=== PATIENT | male | born 1970 | race Caucasian/White ===

== ENCOUNTER → 2017-06-18 07:40 | Outpatient (CLI) | payer OTHER, SELFPAY ==
[2017-06-18 09:34] LABS: Anion Gap 8 (5-15); BUN 15 mg/dL (7-18); BUN/Creat Ratio 17.7 RATIO (10-20); Calcium,Total 8.5 mg/dL (8.5-10.1); Chloride 109 mmol/L (98-107); Cholesterol 199 mg/dL (200); Creatinine, Serum 0.85 mg/dL (0.70-1.30); EST Glomerular Filtration Rate 103 mL/min (>60); Est Glom Filt Rate - Afr Amer 124 mL/min (>60); Glucose 90 mg/dL (74-106); High Density Lipoprotein 35 mg/dL; Potassium 4.1 mmol/L (3.5-5.1); Sodium Level 141 mmol/L (136-145); Triglycerides 138 mg/dL; Very Low Density Lipoprotein 28 mg/dL (5-40)
== END ==
PROVIDERS: Family Provider Family Medicine; PCP Family Medicine; Visit Provider Family Medicine
DX: Z00.00 Encounter for general adult medical examination without abnormal findings (principal)
CPT/HCPCS: 36415; 80048; 80061

== ENCOUNTER 2018-01-02 07:40 | Day surgery (SDC) | payer OTHER, SELFPAY ==
[2018-01-02 07:55] VITALS: BP 123/71; PULSE 59; RESP 16; TEMP 36.6; O2SAT 97; BMI 32.8
--- NOTE | 2018-01-02 09:00 | COLBX_PTH ---
PATIENT: KEYLA ESTEVEZ LOC: EN U#:[id number] AGE/SX: 47/M ROOM: RE01/02/[address]: Dr. Duane Barnes MD : 1970 BED: DIS: 01/02/2018 SPEC #: [id number] RECD: 01/02/18 10:38 STATUS: KELSIE KAYLA #: [id number] MERLENE: 01/02/18 09:[address]: Duane Barnes DEPT: SURGICAL PATHOLOGY RECD BY: Feliciano Smith ENTERED: 01/02/18 11:11 SP TYPE: COLON BX OTHR DR: Dr. Dell Hawkins MD Tissues: A - Rectum, NOS B - Rectum, NOS Procedures: Surgery Specimen Level IV HEADER OPERATION: Colonoscopy (MAC) PRE-OP DIAGNOSIS: Screening TISSUE SUBMITTED: A. Polyp of rectum, B. Biopsy of polyp in rectum MICROSCOPIC DIAGNOSIS A. Polyp of rectum, biopsy: Fragments of hyperplastic polyp. B. Polyp in rectum, biopsy: Fragments of hyperplastic polyp. WILLI:chuy 01/03/18 MICROSCOPIC DESCRIPTION Slides are reviewed. GROSS DESCRIPTION A - Received in fixative is one container labeled with the patient's name and designated polyp rectum. The specimen consists of two pieces of cordero-pink polyp measuring 0.4 x 0.4 x 0.3 cm and 0.5 x 0.3 x 0.2 cm. The specimen is totally submitted in one cassette. B - Received in fixative is one container labeled with the patient's name and designated biopsy rectum. The specimen consists of two irregular fragments of cordero soft tissue that in aggregate measure 0.6 x 0.2 x 0.1 cm. The specimen is totally submitted in one cassette. / WILLI:chuy 01/02/18 TC:1 [facility]: [id number] x2
--- NOTE | 2018-01-02 09:31 | PCM.HP.STD ---
Problem List (1) Screen for colon cancer Status: Acute History of Present Illness Date of Admission: 01/02/18 The patient is a 47 year old M who presents for screening colonoscopy. Past Medical History Medical History: Medical History (Last Reviewed 01/02/18 @ 09:31 by Duane Barnes MD) Abdominal pain R10.9 Allergies No Known Allergies Allergy (Verified 12/30/17 08:27) Home Medications: Ambulatory Orders Medication Instructions Recorded Prednisone 10 mg PO UD 12/30/17 Surgical History: Surgical History (Last Reviewed 01/02/18 @ 09:31 by Duane Barnes MD) History of tonsillectomy Z98.890, Z90.89 History of umbilical hernia repair Z98.890, Z87.19 Smoking Status: Current every day smoker Tobacco Use: Cigarettes - *Family History Maternal Family History: Family History (Last Reviewed 11/14/17 @ 14:11 by Carole Montano) Mother Breast cancer History Items: No pertinent history Review of Systems Cardiovascular: Denies: Chest Pain, Chest Pressure, Chest Tightness, Palpitations Respiratory: Denies: Cough, Hemoptysis, Shortness of breath at rest, Shortness of breath upon exertion, Wheezing Gastrointestinal: Denies: Abdominal Pain, Constipation, Diarrhea, Hematemesis, Nausea, Melena, Vomiting VTE Information - Inpt Only VTE Present on Admission: No VTE Mechan Device Prophylaxis: None VTE Pharm Prophylaxis ordered?: No Reason prophylaxis not ordered:: Treatment Not Indicated Patient Problems: Active and Suspected Problems (Last Reviewed 11/14/17 @ 14:11 by Carole Montano) Screen for colon cancer (Acute) - Physical Exam Lungs: Clear to auscultation Cardiovascular: Regular rate, Regular Rhythm, No murmurs Abdomen: Bowel Sounds Present, Soft, Non Tender, Non-Distended Vital Signs Temp Pulse Resp BP Pulse Ox 97.8 F 59 L 16 123/71 H 97 01/02/18 07:55 01/02/18 07:55 01/02/18 07:55 01/02/18 07:55 01/02/18 07:55 Oxygen Delivery Method Room Air Weight: 241 lb 10.026 oz Body Mass Index (BMI) 32.8 Assessment/Plan All Active Problems (Last Reviewed 11/14/17 @ 14:11 by Carole Montano) Screen for colon cancer (Acute) Will be to perform a colonoscopy on him
[2018-01-02 09:32] VITALS: BP 100/62; BP 123/71; PULSE 68; RESP 16; TEMP 36.3; O2SAT 92
--- NOTE | 2018-01-02 09:32 | PCM.OPRPT ---
Problem List (1) Screen for colon cancer Status: Acute Report of Operation Date of Procedure: 01/02/18 Pre-Operative Diagnosis: z12.11 screening colonoscopy Post-Operative Diagnosis: Same Surgery/Procedure Performed:: [id number] colonoscopy with snare polypectomy Type of Anesthesia:: MAC Description of Procedure: Patient was brought into the endoscopy suite. Placed in the left lateral decubitus position. Patient was given graded anesthesia. Colonoscope was inserted into the rectum and directed through the sigmoid colon, descending colon, transverse colon, descending colon, to the cecum. Operative findings: 1. Cecum: Normal appearance no mass lesions normal ileocecal valve. 2. Ascending colon: Normal appearance no mass lesions. 3. Transverse colon: Normal appearance no mass lesions. 4. Descending colon: Normal appearance no mass lesions. 5. Sigmoid colon: Normal appearance few scattered diverticuli identified no mass lesions. 6. Rectum: Medium-sized polyp was identified just after the first fold it was removed with snare cautery technique and brought back to the channel the scope without difficulty. Patient had 2 other small sessile hyperplastic polyps which were biopsied with cold biopsy forceps.. Scope was withdrawn digital rectal exam was performed showing a smooth prostate with no nodules and no masses within the anus. Patient will need to have another colonoscopy in 3 years. - Admit VTE Documentation VTE Present on Admission: No VTE Mechan Device Prophylaxis: None VTE Pharm Prophylaxis ordered?: No Reason prophylaxis not ordered:: Treatment Not Indicated
[2018-01-02 09:35] VITALS: BP 123/71; BP 98/51; PULSE 62; RESP 16; O2SAT 94
[2018-01-02 09:40] VITALS: BP 101/81; BP 123/71; PULSE 62; RESP 16; O2SAT 94
[2018-01-02 09:46] VITALS: BP 101/52; BP 123/71; PULSE 54; RESP 16; TEMP 36; O2SAT 95
[2018-01-02 10:03] VITALS: BP 123/71
== END 2018-01-02 10:07 | disposition home or self-care (01) ==
LOC: EN 07:41 → AC 07:42
PROVIDERS: Family Provider Family Medicine; PCP Family Medicine; Visit Provider Surgery
PROC: 0DJD8ZZ Inspection of Lower Intestinal Tract, Via Natural or Artificial Opening Endoscopic (ICD-10-PCS; CPT 45378; principal; 2018-01-02 08:55)
DX: Z12.11 Encounter for screening for malignant neoplasm of colon (principal); K62.1 Rectal polyp; F17.210 Nicotine dependence, cigarettes, uncomplicated; Z79.52 Long term (current) use of systemic steroids
CPT/HCPCS: 45385; 88305; J7120

== ENCOUNTER → 2018-02-24 15:08 | Outpatient (CLI) | payer OTHER, SELFPAY ==
--- NOTE | 2018-02-24 15:16 | EKG12_ITS ---
Test Reason : PREOP Blood Pressure : / mmHG Vent. Rate : 053 BPM Atrial Rate : 053 BPM P-R Int : 142 ms QRS Dur : 102 ms QT Int : 418 ms P-R-T Axes : 050 030 -14 degrees QTc Int : 392 ms Sinus bradycardia T wave abnormality, consider inferior ischemia Abnormal ECG Confirmed by SADIQ STYLES, AIDA ([id number]), scientific publications editor AYALA BROWN ([id number]) on 02/27/2018 3:50:54 PM Referred By: Zuhair Goldberg Confirmed By:AIDA BABCOCK MD
[2018-02-24 16:14] LABS: Hematocrit 46.2 % (40-54); Hemoglobin 15.2 g/dl (13.0-16.5); Mean Corp Hgb Conc 32.9 g/gl (32-36); Mean Corpuscular Hgb 29.3 pg (27.0-32.0); Mean Platelet Vol. 9.3 fl (6.2-12.0); Platelet Count 303 K/mm3 (150-450); RBC Distribution Width CV 13.3 % (11.6-14.6); RBC Distribution Width SD 43.1 fl (35.1-43.9); Red Blood Count 5.19 M/mm3 (4.6-6.2); White Blood Count 9.9 K/mm3 (4.4-11.0)
[2018-02-24 16:16] LABS: Scan Indicated on CBC? Y/N NO
[2018-02-24 16:24] LABS: Anion Gap 9 (5-15); BUN 20 mg/dL (7-18); BUN/Creat Ratio 19.6 RATIO (10-20); Calcium,Total 8.9 mg/dL (8.5-10.1); Chloride 105 mmol/L (98-107); Creatinine, Serum 1.02 mg/dL (0.70-1.30); EST Glomerular Filtration Rate 83 mL/min (>60); Est Glom Filt Rate - Afr Amer 100 mL/min (>60); Glucose 99 mg/dL (74-106); Potassium 3.6 mmol/L (3.5-5.1); Sodium Level 140 mmol/L (136-145)
== END ==
PROVIDERS: Family Provider Family Medicine; PCP Family Medicine; Referring Provider Physician Assistant Surgical; Visit Provider Physician Assistant Surgical
DX: Z01.810 Encounter for preprocedural cardiovascular examination (principal); Z01.818 Encounter for other preprocedural examination
CPT/HCPCS: 36415; 80048; 85027; 93005

== ENCOUNTER → 2018-03-11 11:20 | Outpatient (CLI) | payer OTHER, SELFPAY ==
[2018-03-07 13:59] VITALS: BMI 35.4
[2018-03-11 12:21] LABS: AST(SGOT) 117 U/L (15-37); Alanine Aminotransfer ALT/SGPT 165 U/L (16-61); Albumin, Serum 3.6 g/dL (3.2-5.0); Alkaline Phosphatase 80 U/L (45-117); Bilirubin, Direct 0.18 mg/dL (0.00-0.30); Cholesterol 186 mg/dL (200); Globulin 3.5 g/dL (2.2-4.2); High Density Lipoprotein 42 mg/dL; Protein, Total 7.1 g/dL (6.4-8.2); Triglycerides 122 mg/dL; Very Low Density Lipoprotein 24 mg/dL (5-40)
== END ==
PROVIDERS: Family Provider Family Medicine; PCP Family Medicine; Referring Provider Internal Medicine Cardiovascular Disease; Visit Provider Internal Medicine Cardiovascular Disease
DX: E78.5 Hyperlipidemia, unspecified (principal)
CPT/HCPCS: 36415; 80061; 80076

== ENCOUNTER → 2018-03-17 09:44 | Outpatient (CLI) | payer OTHER, SELFPAY ==
[2018-03-07 13:59] VITALS: BMI 35.4
--- NOTE | 2018-03-17 09:48 | ECHOCS_ITS ---
Reason For Study: ABN EKG Procedure This was a 2D Doppler, Color Flow transthoracic echocardiogram. Contrast injection was performed. Exam performed in department. Left Ventricle Normal size and thickness. The estimated ejection fraction is 50-55 %. Mild global left ventricular systolic dysfunction. Stage 1 diastolic dysfunction. Right Ventricle Mildly dilated right ventricle. Normal systolic function. Atria Normal left atrium. Normal right atrium. Normal atrial septum. Mitral Valve The mitral valve is structurally normal. No prolapse or stenosis seen. Tricuspid Valve Normal tricuspid valve. Trivial tricuspid valve insufficiency. Right ventricular systolic pressure estimated to be 21 mmHg. Aortic Valve Trisinus/trileaflet aortic valve. Normal aortic valve. Pulmonic Valve Normal pulmonic valve. Great Vessels Normal aortic root. Normal arch. Normal inferior vena cava. Inferior vena cava collapse with sniff. Pericardium/Pleural No pericardial effusion. Medication 22 gauge I.V. with prn adaptor inserted into right arm. Diluted definity 7ml given slow IV push to enhance endocardial definition. MMode/2D Measurements & Calculations LVIDd: 5.6 cm IVSd: 0.87 cm Ao root diam: 3.2 cm LVIDs: 3.9 cm LVPWd: 0.85 cm RVDd: 3.9 cm FS: 30.7 % LAV(MOD-bp): 52.7 ml LVAd ap4: 38.5 cm2 EDV(MOD-sp2): 78.2 ml LAV(MOD-bp) Indexed: 23.1 ml/m2 EDV(MOD-sp4): 137.8 ml EF(MOD-sp2): 51.2 % LAV(MOD-sp2): 54.4 ml EDV(sp4-el): 152.1 ml LAV(MOD-sp4): 44.8 ml LVAs ap4: 23.5 cm2 ESV(MOD-sp4): 66.2 ml ESV(sp4-el): 69.8 ml EF(MOD-sp4): 52.0 % EF(sp4-el): 54.1 % SV(MOD-sp4): 71.6 ml SV(MOD-sp2): 40.0 ml SV(sp4-el): 82.3 ml LA A4 area: 17.7 cm2 LA dimension(2D): 4.5 cm RA A4 area: 12.2 cm2 Time Measurements MV dec time: 0.23 sec Doppler Measurements & Calculations MV E max el: 90.7 cm/sec Lat Peak E' El: 10.3 cm/sec Med Peak E' El: 9.4 cm/sec MV A max el: 51.8 cm/sec E/E' lat: 8.8 E/E' med: 9.7 MV E/A: 1.8 Ao V2 max: 108.9 cm/sec LV V1 max: 96.6 cm/sec TR max el: 201.4 cm/sec Ao max P.7 mmHg LV V1 max P.7 mmHg TR max P.2 mmHg Interpretation Summary The estimated ejection fraction is 50-55 %. Mild global left ventricular systolic dysfunction. Stage 1 diastolic dysfunction. Mildly dilated right ventricle. Trivial tricuspid valve insufficiency. Right ventricular systolic pressure estimated to be 21 mmHg. There is no comparison study available. Ordering Physician: Duane Nails Referring Physician: LADONNA CHIN Performed By: Elisabeth Leos RDCS, RVT
== END ==
PROVIDERS: Family Provider Family Medicine; PCP Family Medicine; Referring Provider Internal Medicine Cardiovascular Disease; Visit Provider Internal Medicine Cardiovascular Disease
DX: Z01.810 Encounter for preprocedural cardiovascular examination (principal); R94.31 Abnormal electrocardiogram [ECG] [EKG]
CPT/HCPCS: 93306; Q9957; A4216; C8929

== ENCOUNTER → 2018-03-23 09:20 | Outpatient (CLI) | payer OTHER, SELFPAY ==
--- NOTE | 2018-03-23 09:23 | STEWCON_ITS ---
Reason For Study: ABN EKG Stress Results Protocol: Stress Echocardiogram Maximum Predicted HR: 172 bpm Target HR: 146 bpm % Maximum Predicted HR: 88 % DurationHeart Rate Stage (mm:ss) (bpm) BP Comment BASELINE 50 120/77DILUTED DEFINITY 3ML USED BURCE PROTOCOL- STAGE 1 3:00 105 160/80 ABDIRAHMAN PROTOCOL- STAGE 2 3:00 134 174/74SL SOB ABDIRAHMAN PROTOCOL- STAGE 3 3:00 151 180/80SOB RECOVERY 88 120/82 Stress Duration: 9:00 mm:ss Maximum Stress HR: 151 bpm Baseline Echocardiogram Findings The estimated ejection fraction is 65 %. Stress Echo Wall motion Data Resting WM Intermediate WM Stress WM Resting Wall Motion Wall Motion Stress No regional wall motion No regional wall motion abnormalities noted. abnormalities noted. EKG Data Normal intervals are noted. The patient exercised according to the regular Abdirahman protocol for a total duration of 9:03. The maximum heart rate attained was 151 beats per minute. This was 87% of maximum predicted heart rate. The patient exercised into stage 4 of the Abdirahman protocol. During stress, there were no ST or T wave changes noted to suggest ischemia. No clinical angina was noted. No arrhythmias noted. Interpretation Summary The study was technically difficult. Contrast injection was performed. The estimated ejection fraction is 65 %. Normal, adequate, treadmill echocardiogram. Negative for ischemia by EKG and echocardiographic criteria. No anginal symptoms noted. No arrhythmias noted. Average exercise capacity for age. Final LVEF is 75%. Decreased sensitivity due to poor echo windows requiring Definity enhancing agent. Test terminated due to dyspnea. No complications. Ordering Physician: Duane Nails Referring Physician: Dell Hawkins MD Performed By: Elisabeth Leos, CBCS, RVT
--- OUTSIDE RECORDS SUMMARY | 2018-05-18 10:15 | XMS RPT_ITS ---
:1970 Author Organization OHIP Support Name Relationship Address Phone ESTEVEZSRI POLLACK Unavailable [address] + [place] [address] SJE RHOMBUS Unavailable [address] + [place] [address] SRI ESTEVEZ Unavailable [address] + [place] [address] SJE RHOMBUS Unavailable [address] + [place] [address] SRI ESTEVEZ Unavailable [address] + [place] [address] SJE RHOMBUS Unavailable [address] + [place] [address] SRI ESTEVEZ Unavailable [address] + [place] [address] SJE RHOMBUS Unavailable [address] + [place] [address] KE ESTEVEZECCA Unavailable [address] + [place] [address] SJE RHOMBUS Unavailable [address] + [place] [address] KE ESTEVEZECCA Unavailable [address] + [place] [address] SJE RHOMBUS Unavailable [address] + [place] [address] SRI ESTEVEZ Unavailable [address] + [place] [address] SJE RHOMBUS Unavailable [address] + [place] [address] SRI ESTEVEZ Unavailable [address] + [place] [address] SJE RHOMBUS Unavailable [address] + [place] [address] ESTEVEZ, SRI Unavailable [address] + [place] [address] SJE RHOMBUS Unavailable [address] + [place] [address] ESTEVEZ, SRI Unavailable [address] + [place] [address] SJE RHOMBUS Unavailable [address] + [place] [address] ESTEVEZ, SRI Unavailable [address] + [place] [address] SJE RHOMBUS Unavailable [address] + [place] [address] ESTEVEZ, SRI Unavailable [address] + [place] [address] SJE RHOMBUS Unavailable [address] + [place] [address] ESTEVEZ, SRI Unavailable [address] + [place] [address] SG ROBOSE Unavailable / +/ [place] [address] ZENAIDA, SRI Unavailable [address] [phone] [place] [address] SG ROBOSE Unavailable / +/ [place] [address] ESTEVEZ, SRI Unavailable [address] [phone] [place] [address] SG ROBOSE Unavailable / +/ [place] [address] Care Team Providers Name Role Phone Duane Nails Attending Unavailable Duane Nails Referring Unavailable Duane Barnes Attending Unavailable Ladonna Hawkins Referring Unavailable Ladonna Hawkins Attending Unavailable Ladonna Hawkins Primary Care Unavailable Meg Wilks PA-C Attending Unavailable Ladonna Hawkins Referring Unavailable Ladonna Hawkins Primary Care Unavailable Duane Barnes Attending Unavailable Ladonna Hawkins Primary Care Unavailable Duane Barnes Referring Unavailable Duane Barnes Attending Unavailable Duane Barnes Referring Unavailable Ranney, Christopher Primary Care Unavailable Duane Barnes Consulting Unavailable Duane Barnes Attending Unavailable Ranney, Christopher Referring Unavailable Ranney, Christopher Primary Care Unavailable EsZuhair huggins PA-C Attending Unavailable EshenZuhair bloom-C Referring Unavailable Ranney, Christopher Primary Care Unavailable Duane Nails Attending Unavailable Ranney, Christopher Referring Unavailable NailsDuane Attending Unavailable Nails, Duane Referring Unavailable Ranney, Christopher Primary Care Unavailable Duane Nails Attending Unavailable Ranney, Christopher Primary Care Unavailable Duane Nails Referring Unavailable Johnson Peña Attending Unavailable EshenauZuhair gao PA-C Referring Unavailable NailsDuane Attending Unavailable Nails, Duane Referring Unavailable Ranney, Christopher Primary Care Unavailable Duane Nails Attending Unavailable NailsDuane Referring Unavailable Ranney, Christopher Primary Care Unavailable Duane Nails Consulting Unavailable LeonidesneyLadonna Attending Unavailable Ranney, Christopher Primary Care Unavailable PROBLEMS PROBLEMS DATE TYPE CONDITION / CODE ATTENDING STATUS SOURCE 03/23/2018 Unknown Z01.810 - Encounter Duane Nails Active [place] for preprocedural [facility] examination / Repository Z01.810(ICD-10) 04/06/2018 Unknown R94.31 - Abnormal Duane Nails Active [place] electrocardiogram Community [ECG] [EKG] / Hospital R94.31(ICD-10) Repository 03/11/2018 Unknown E78.5 - Duane Nails Active [place] Hyperlipidemia, Community unspecified / Hospital E78.5(ICD-10) Repository 02/24/2018 Unknown Z01.818 - Encounter Xin Goldberg for other Zuhair ULLOA [facility] preprocedural Hospital examination / Repository Z01.818(ICD-10) PROCEDURES PROCEDURES No Procedure Records FoundRESULTS RESULTS PROTHROMBIN TIME W/INR Collected: 03/27/2018 Status: F Source: [place] 3:19 PM [facility] REPOSITORY TYPE CODE TESTS RESULT OUT OF RANGE REFERENCE UNITS LAB L300.4150 11.7-14.9 SECONDS Normal PROTIME 12.7 LAB L300.4200 Normal INR 1.0 Performed By: #### L300.3900, L300.4310, L500.4050, L501.5100, L503.6550 #### [facility] [address] [place], [place], [address] #### L3100.0390, L3100.0440, L3100.0528, L3100.0625 #### [facility] (refer to report for specific site) refer to report for address and phone number PARTIAL THROMBOPLAST Collected: 03/27/2018 Status: F Source: [place] TIME 3:19 PM [facility] REPOSITORY TYPE CODE TESTS RESULT OUT OF RANGE REFERENCE UNITS LAB L300.4310 24.1-36.2 Seconds Normal PTT 36.1 Performed By: #### L300.3900, L300.4310, L500.4050, L501.5100, L503.6550 #### [facility] [address] [facility]. [place], [place], [id number] #### L3100.0390, L3100.0440, L3100.0528, L3100.0625 #### [facility] (refer to report for specific site) refer to report for address and phone number COMPREHENSIVE METABOLIC Collected: 03/27/2018 Status: F Source: [place] PROFIL 3:19 PM [facility] REPOSITORY TYPE CODE TESTS RESULT OUT OF RANGE REFERENCE UNITS LAB L501.0100 74-106 mg/dL Normal GLU 80 Result Comment: Please note revised GLUCOSE reference range effective 2017. LAB L501.1000 7-18 mg/dL High BUN 19 LAB L501.1100 0.70-1.30 mg/dL Normal CREAT,SERUM 0.97 Result Comment: The validity of the calculated GFR AND GFRAA in patients over 70 years has not been determined. Clinical correlation is essential. LAB L501.1110 >60 mL/min Normal EST GFR 87 Result Comment: Non- GFR Calc LAB L501.1115 >60 mL/min Normal EST GFR - AA 106 Result Comment: GFR Calc LAB L501.1300 10-20 RATIO Normal BUN/CRE 19.5 LAB L501.1500 6.4-8.2 g/dL T Normal PROT 7.3 LAB L501.1800 3.2-5.0 g/dL Normal ALB 3.7 LAB L501.1950 2.2-4.2 g/dL Normal GLOB 3.6 LAB L501.2000 0.9-2.4 RATIO Normal A/G 1.0 LAB L501.2200 8.5-10.1 mg/dL CA Normal 8.7 LAB L501.4100 15-37 U/L Normal AST 29 LAB L501.4305 45-117 U/L Normal ALK P 71 LAB L501.4405 16-61 U/L Normal ALT 46 LAB L501.4600 0.20-1.00 mg/dL T Normal BILI 0.40 LAB L501.5300 136-145 mmol/L NA Normal 141 LAB L501.5600 3.5-5.1 mmol/L K Normal 3.7 LAB L501.5900 98-107 mmol/L CL Normal 104 LAB L501.6100 21.0-32.0 mmol/L Normal CO2 24.0 LAB L501.6200 5-15 Normal GAP 13 Performed By: #### L300.3900, L300.4310, L500.4050, L501.5100, L503.6550 #### [facility] [address] [place], [address] #### L3100.0390, L3100.0440, L3100.0528, L3100.0625 #### [facility] (refer to report for specific site) refer to report for address and phone number GGTP Collected: 03/27/2018 Status: F Source: [place] 3:19 PM [facility] REPOSITORY TYPE CODE TESTS RESULT OUT OF RANGE REFERENCE UNITS LAB L501.5100 15-85 U/L High GGTP 220 Performed By: #### L300.3900, L300.4310, L500.4050, L501.5100, L503.6550 #### [facility] [address] [place], [address] #### L3100.0390, L3100.0440, L3100.0528, L3100.0625 #### [facility] (refer to report for specific site) refer to report for address and phone number FERRITIN Collected: 03/27/2018 Status: F Source: [place] 3:19 PM [facility] REPOSITORY TYPE CODE TESTS RESULT OUT OF RANGE REFERENCE UNITS LAB L503.6550 26-388 ng/mL Normal FERRITIN 121 Performed By: #### L300.3900, L300.4310, L500.4050, L501.5100, L503.6550 #### [facility] [address] [place] [address], [address] #### L3100.0390, L3100.0440, L3100.0528, L3100.0625 #### [facility] (refer to report for specific site) refer to report for address and phone number HEPATITIS B SURFACE Collected: 03/27/2018 Status: F Source: [place] AG 3:19 PM [facility] REPOSITORY TYPE CODE TESTS RESULT OUT OF RANGE REFERENCE UNITS LAB L3100.0400 Negative Normal HB Negative SURF AG Performed By: #### L300.3900, L300.4310, L500.4050, L501.5100, L503.6550 #### [facility] [address] [place] [address], [address] #### L3100.0390, L3100.0440, L3100.0528, L3100.0625 #### [facility] (refer to report for specific site) refer to report for address and phone number HEPATITIS B CORE AB Collected: 03/27/2018 Status: F Source: [place] IGM 3:19 PM [facility] REPOSITORY TYPE CODE TESTS RESULT OUT OF RANGE REFERENCE UNITS LAB L3100.0440 Negative Normal HB Negative CORE [id number] Result Comment: Performed at: [facility] [address] [id number] Cooker Helper: Keny Stack PhD, Phone: [phone] Performed By: #### L300.3900, L300.4310, L500.4050, L501.5100, L503.6550 #### [facility] [address] [place] [address], [address] #### L3100.0390, L3100.0440, L3100.0528, L3100.0625 #### [facility] (refer to report for specific site) refer to report for address and phone number HEP B SURFACE Collected: 03/27/2018 Status: F Source: [place] ANTIBODIES 3:19 PM [facility] REPOSITORY TYPE CODE TESTS RESULT OUT OF RANGE REFERENCE UNITS LAB L3100.0528 . Normal Hep B Reactive Narciso AB Result Comment: Non Reactive: Inconsistent with immunity, less than 10 mIU/mL Reactive: Consistent with immunity, greater than 9.9 mIU/mL Performed By: #### L300.3900, L300.4310, L500.4050, L501.5100, L503.6550 #### [facility] [address] [place], [address] #### L3100.0390, L3100.0440, L3100.0528, L3100.0625 #### [facility] (refer to report for specific site) refer to report for address and phone number HEPATITIS C ANTIBODIES Collected: 03/27/2018 Status: F Source: [place] 3:19 PM [facility] REPOSITORY TYPE CODE TESTS RESULT OUT OF RANGE REFERENCE UNITS LAB L3100.0650 0.0-0.9 s/co ratio Normal HEP C AB <0.1 Result Comment: Negative: < 0.8 Indeterminate: 0.8 - 0.9 Positive: > 0.9 The CDC recommends that a positive HCV antibody result be followed up with a HCV Nucleic Acid Amplification test (435582). Performed By: #### L300.3900, L300.4310, L500.4050, L501.5100, L503.6550 #### [facility] [place], [address] #### L3100.0390, L3100.0440, L3100.0528, L3100.0625 #### [facility] (refer to report for specific site) refer to report for address and phone number STRESS TEST ECHO W/ Observed: 03/23/2018 Status: F Source: [place] CONTRAST 12:35 PM [facility] REPOSITORY [facility] Cardiovascular Services [address] [place] [address] Stress Test Echo W/Contrast MR#: [id number] Acct: [id number] Name: KEYLA ESTEVEZ Rep #: [id number] : 1970 47 From: Duane Nails MD Primary Care: Ladonna Hawkins MD Status: REG CLI Ordering Dr: Duane Nails MD Sex: M C Reason For Study: ABN EKG Stress Results Protocol: Stress Echocardiogram Maximum Predicted HR: 172 bpm Target HR: 146 bpm % Maximum Predicted HR: 88 % DurationHeart Rate Stage (mm:ss) (bpm) BP Comment BASELINE 50 120/77DILUTED DEFINITY 3ML USED BURCE PROTOCOL- STAGE 1 3:00 105 160/80 ABDIRAHMAN PROTOCOL- STAGE 2 3:00 134 174/74SL SOB ABDIRAHMAN PROTOCOL- STAGE 3 3:00 151 180/80SOB RECOVERY 88 120/82 Stress Duration: 9:00 mm:ss Maximum Stress HR: 151 bpm Baseline Echocardiogram Findings The estimated ejection fraction is 65 %. Stress Echo Wall motion Data Resting WM Intermediate WM Stress WM Resting Wall Motion Wall Motion Stress No regional wall motion No regional wall motion abnormalities noted. abnormalities noted. EKG Data Normal intervals are noted. The patient exercised according to the regular Abdirahman protocol for a total duration of 9:03. The maximum heart rate attained was 151 beats per minute. This was 87% of maximum predicted heart rate. The patient exercised into stage 4 of the Abdirahman protocol. During stress, there were no ST or T wave changes noted to suggest ischemia. No clinical angina was noted. No arrhythmias noted. Interpretation Summary The study was technically difficult. Contrast injection was performed. The estimated ejection fraction is 65 %. Normal, adequate, treadmill echocardiogram. Negative for ischemia by EKG and echocardiographic criteria. No anginal symptoms noted. No arrhythmias noted. Average exercise capacity for age. Final LVEF is 75%. Decreased sensitivity due to poor echo windows requiring Definity enhancing agent. Test terminated due to dyspnea. No complications. Ordering Physician: Duane Nails Referring Physician: Ladonna Hawkins MD Performed By: Elisabeth Leos, RDCS, RVT 03/23/18 1234 Date Duane Nails MD CC: Ladonna Hawkins MD; Duane Nails MD Date Dictated: 03/23/18 1011 Date Transcribed: 03/23/18 1234 Wrapping Machine Operator: Signed ECHO, COMPLETE W/ Observed: 03/17/2018 Status: F Source: [place] CONTRAST 11:14 AM [facility] REPOSITORY [facility] Cardiovascular Services [address] [place] [address] Echo Complete W/ Contrast 03/17/18 0952 MR#: [id number] Acct: [id number] Name: KEYLA ESTEVEZ Rep #: [id number] : 1970 47 From: Duane Nails MD Attending Dr: Duane Nails MD Status: REG CLI Ordering Dr: Duane Nails MD Date: 03/17/18 Location: [facility] Sex: M C Admitted: Reason For Study: ABN EKG Procedure This was a 2D Doppler, Color Flow transthoracic echocardiogram. Contrast injection was performed. Exam performed in department. Left Ventricle Normal size and thickness. The estimated ejection fraction is 50-55 %. Mild global left ventricular systolic dysfunction. Stage 1 diastolic dysfunction. Right Ventricle Mildly dilated right ventricle. Normal systolic function. Atria Normal left atrium. Normal right atrium. Normal atrial septum. Mitral Valve The mitral valve is structurally normal. No prolapse or stenosis seen. Tricuspid Valve Normal tricuspid valve. Trivial tricuspid valve insufficiency. Right ventricular systolic pressure estimated to be 21 mmHg. Aortic Valve Trisinus/trileaflet aortic valve. Normal aortic valve. Pulmonic Valve Normal pulmonic valve. Great Vessels Normal aortic root. Normal arch. Normal inferior vena cava. Inferior vena cava collapse with sniff. Pericardium/Pleural No pericardial effusion. Medication 22 gauge I.V. with prn adaptor inserted into right arm. Diluted definity 7ml given slow IV push to enhance endocardial definition. MMode/2D Measurements AND Calculations LVIDd: 5.6 cm IVSd: 0.87 cm Ao root diam: 3.2 cm LVIDs: 3.9 cm LVPWd: 0.85 cm RVDd: 3.9 cm FS: 30.7 % LAV(MOD-bp): 52.7 ml LVAd ap4: 38.5 cm2 EDV(MOD-sp2): 78.2 ml LAV(MOD-bp) Indexed: 23.1 ml/m2 EDV(MOD-sp4): 137.8 ml EF(MOD-sp2): 51.2 % LAV(MOD-sp2): 54.4 ml EDV(sp4-el): 152.1 ml LAV(MOD-sp4): 44.8 ml LVAs ap4: 23.5 cm2 ESV(MOD-sp4): 66.2 ml ESV(sp4-el): 69.8 ml EF(MOD-sp4): 52.0 % EF(sp4-el): 54.1 % SV(MOD-sp4): 71.6 ml SV(MOD-sp2): 40.0 ml SV(sp4-el): 82.3 ml LA A4 area: 17.7 cm2 LA dimension(2D): 4.5 cm RA A4 area: 12.2 cm2 Time Measurements MV dec time: 0.23 sec Doppler Measurements AND Calculations MV E max el: 90.7 cm/sec Lat Peak E' El: 10.3 cm/sec Med Peak E' El: 9.4 cm/sec MV A max el: 51.8 cm/sec E/E' lat: 8.8 E/E' med: 9.7 MV E/A: 1.8 Ao V2 max: 108.9 cm/sec LV V1 max: 96.6 cm/sec TR max el: 201.4 cm/sec Ao max P.7 mmHg LV V1 max P.7 mmHg TR max P.2 mmHg Interpretation Summary The estimated ejection fraction is 50-55 %. Mild global left ventricular systolic dysfunction. Stage 1 diastolic dysfunction. Mildly dilated right ventricle. Trivial tricuspid valve insufficiency. Right ventricular systolic pressure estimated to be 21 mmHg. There is no comparison study available. Ordering Physician: Duane Nails Referring Physician: LADONNA HAWKINS Performed By: Elisabeth Leos, ALVINO, RVT 03/17/18 1113 Date Duane Nails MD CC: Ladonna Hawkins MD; Duane Nails MD Date Dictated: 03/17/18 0952 Date Transcribed: 03/17/18 1113 Wrapping Machine Operator: Signed LIVER PROFILE Collected: 03/11/2018 Status: F Source: [place] 11:28 AM [facility] REPOSITORY Order Comment: SEND RESULTS TO ALSO PER PATIENT TYPE CODE TESTS RESULT OUT OF RANGE REFERENCE UNITS LAB L501.1500 6.4-8.2 g/dL Normal T PROT 7.1 LAB L501.1800 3.2-5.0 g/dL Normal ALB 3.6 LAB L501.1950 2.2-4.2 g/dL Normal GLOB 3.5 LAB L501.4100 15-37 U/L High AST 117 LAB L501.4305 45-117 U/L Normal ALK P 80 LAB L501.4405 16-61 U/L High ALT 165 LAB L501.4600 0.20-1.00 mg/dL Normal T BILI 0.60 LAB L501.4700 0.00-0.30 mg/dL Normal D BILI 0.18 Performed By: #### L500.3400, L500.4100 #### [facility] [address] [place], [address] LIPID PROFILE Collected: 03/11/2018 Status: F Source: [place] 11:28 AM [facility] REPOSITORY Order Comment: SEND RESULTS TO ALSO PER PATIENT TYPE CODE TESTS RESULT OUT OF RANGE REFERENCE UNITS LAB L501.4900 200 mg/dL Normal CHOL 186 Result Comment: <200 mg/dL Desirable 200-240 mg/dL Borderline >240 mg/dL High Risk LAB L501.5000 mg/dL Normal TRIG 122 Result Comment: The drugs N-Acetylcysteine and Metamizole may falsely depress this assay. Serum Triglycerides Reference Interval Normal <150 mg/dL Borderline high 150 - 199 mg/dL High 200 - 499 mg/dL Very High > or = 500 mg/dL LAB L501.6400 mg/dL Normal HDL 42 Result Comment: The drugs N-Acetylcysteine and Metamizole may falsely depress this assay. Reference Range HDL <40 mg/dL Low HDL Cholesterol HDL >or= 60 mg/dL High HDL Cholesterol LAB L501.6500 0-130 mg/dL Normal LDL 120 LAB L501.6600 5-40 mg/dL Normal VLDL 24 Performed By: #### L500.3400, L500.4100 #### [facility] [address] [place], [address] CARDIOLOGY VISIT Observed: 03/07/2018 Status: F Source: [place] REPORT 2:22 PM [facility] REPOSITORY [facility] [address] [place] [address] OFFICE VISIT Date of Service: 03/07/18 MR#: [id number] Acct: [id number] Name: KEYLA ESTEVEZ Rep #: [id number] : 1970 Provider: Duane Nails MD Age/Sex: 47/M Location: [facility] Status: Signed HPI HPI Chief Complaint: ABNL ECG Details: KEYLA ESTEVEZ, is a 47 M who presents to the office today for evaluation of preoperative stratification and abnormal EKG. Patient is a current smoker with a [id number] past smoking history,, nondiabetic, nonhypertensive, no previous coronary disease who is being evaluated for shoulder and rotator surgery by Dr. Ramesh. An EKG was performed on 02/24/18 which showed normal sinus rhythm, normal axis, inverted T waves inferiorly, no previous myocardial infarction noted. Patient was referred for further evaluation and preoperative stratification. On further history he denies any chest pain, angina, shortness of breath or dyspnea on exertion. He does admit to snoring, however does not have daytime somnolence and wakes up well rested. 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 In our office today's blood pressure is 130/70, pulse is 68 and regular. His physical exam demonstrates clear lungs bilaterally, regular rate and rhythm, normal S1/S2, no S3 or S4. No murmurs are detected. He has no edema. Lipids as of 06/18/17 show an LDL of 136 and an HDL of 35. EKG dated 02/24/18 shows normal sinus rhythm, normal axis, normal intervals, no evidence of previous myocardial infarction, and nonspecific inferior ST and T wave changes per Intake Vital Signs03/07/18 Height 5 ft 11 in 03/07/18 Weight: 254 lb 03/07/18 Body Mass Index (BMI) 35.4 03/07/18 Blood Pressure 130/70 H Intake Visit Reasons: ABN EKG ([facility] - SHOULDER SURGERY) General Intern Required: No Accompanied by: Is patient in pain?: No Allergies No Known Allergies Allergy (Verified 03/07/18 14:02) [facility] Medical History Shoulder pain (Acute) Pre-operative cardiovascular exam, new EKG abnormalities c/w ischemia (Acute) Abnormal EKG (Acute) Abdominal pain (Acute) Surgical History History of tonsillectomy (Acute) History of umbilical hernia repair (Acute) Family History Mother Breast cancer Father Hypertension Abnormality of heart valve Social History Smoking Status: Current every day smoker alcohol intake: current alcohol intake frequency: a few times a week substance use type: does not use ROS Const Const: Positive for other ( To have rt rotator cuff repair, but had abn ekg on PAT. Asymptomatic); negative for fatigue, weakness, body ache, fever(s), headache(s), chills, frequent falls, night sweats, daytime sleepiness, difficulty sleeping, excessive sweating, weight gain, weight loss, increased appetite, poor appetite or anorexia Eyes Eyes: Negative for blind spots, loss of peripheral vision, transient loss of vision, blurry vision, change in vision, double vision, floaters, tunnel vision or other ENT ENT: Negative for headache(s), dizziness, hearing loss, tinnitus, Nosebleed/epistaxis, balance problems, post nasal drip, lip swelling, tongue swelling, bleeding gums, hoarseness, neck pain, dry mouth or other Cardio Chest Pain: No Palpitations: No Edema: None Muscle aches with walking: None Resp Respiratory: Negative for SOB with activity, SOB at rest, SOB orthopnea\SOB lying down, Cough, Coughing up blood/hemoptysis, chest congestion, pain on inspiration, snoring, stridor, wheezing, crackles, paroxysmal nocturnal dyspnea or other GI GI: Negative nausea, vomiting, heartburn, constipation, belching, bloating, cramping, vomiting blood/hematemesis, bright, red blood in stools, black,tarry stools, loose stools, Difficulty Swallowing or other : Negative for hematuria, frequent nighttime urination/ nocturia, erectile dysfunction or abnormal vaginal bleeding Musc Musc: Negative for balance problems, muscle aches/ myalgia, muscle weakness or joint pain Skin Skin: Negative redness, non-healing lesions, rash, unusual bruising, skin ulcer, wounds, jaundice or other Neuro Neuro: Negative for weakness, headache(s), frequent falls, blurry vision, double vision, dizziness, lightheadedness, near syncope, syncope, orthostatic symptoms, confusion, memory loss, restless legs, vertigo, seizures, lack of coordination or other Olivier Hematologic/Lymphatic: Negative for easy bleeding, easy bruising, enlarged lymph nodes or other Endo Endo: Negative for fatigue, excessive sweating, cold intolerance, heat intolerance, flushing, increased thirst/drinking, increased hunger, hair loss, hair growth or other Psych Psych: Negative for anxiety, depression, thoughts of harming anyone, thoughts of harming yourself, visual hallucinations, panic attacks or audible hallucinations Allergy Allergy/Immunology: Negative for lip swelling, Negative for tongue swelling, Negative for rash, Negative for throat swelling, Negative for hives Cardiology Exam Const Appearance: cooperative, healthy appearing and no acute distress Nutritional Appearance: well nourished Orientation: alert, oriented x3 and oriented to person Head Head: normal to inspection, atraumatic and normocephalic Nose: external nose normal Face and Sinus: face symmetric Mouth: oral mucosae normal Eyes General: appearance normal, both eyes and all related structures Eyelids: eyelids normal Conjunctivae: conjunctivae normal Pupils: PERRL and normal by confrontation EOM: EOM intact bilaterally Neck Neck: normal visual inspection and full ROM Carotids: normal carotid upstroke Chest Chest inspection: normal inspection of the chest Auscultation: Bilateral: Clear to Auscultation Cardio Palpation: normal PMI Rate: regular rate Rhythm: regular rhythm Heart sounds: S1 normal and S2 normal GI GI: normal to inspection, no hepatosplenomegaly and bowel sounds present Neuro General: alert, oriented x3, awake, CN's II-XI intact bilaterally and moves all extremities Skin Skin: no rashes or lesions noted Extremities Pulses: Normal: Right Femoral Pulse, Left Femoral Pulse, Right Dorsalis Pedis Pulse, Left Dorsalis Pedis Pulse, Right Posterior Tibial Pulse, Left Posterior Tibial Pulse, Right Radial Pulse, Left Radial Pulse Lower Extremity Edema: None: Bilateral Psych Psychological: normal affect Assessment AND Plan 1. Pre-operative cardiovascular exam, new EKG abnormalities c/w ischemia Z01.810; R94.31 Plan 1. Preoperative for stratification: The patient has an abnormal EKG and several risk factors for coronary artery disease including his age, hypercholesterolemia, and smoking history. In addition he has an EKG with subtle inferior ST and T wave changes which may be a normal variant. Given the above findings and his need for shoulder surgery, I recommended he undergo a 2D echo with Doppler as well as a treadmill echocardiogram. If either 1 of these are grossly abnormal, the patient may require diagnostic coronary angiogram. If however his stress test are negative for significant ischemia he will be deemed at low risk for noncardiac surgery. In addition I recommend he undergo a fasting lipid profile to assist with further risk stratify him. His most recent LDL in April 2017 was 136. He is currently on no medications. Patient may require low-dose statin based therapy to assist with primary prevention of premature coronary or cardiovascular disease. In addition, I had a long and thorough discussion with the patient regarding his tobacco use, and strongly encouraged him to discontinue all tobacco products. Patient is voiced understanding and agrees to pursue quitting. 2. Return office in 6 months. This note was generated using a voice recognition system and there may be incorrect words, spelling or punctuation that were not noted when reviewing the office note prior to saving. Orders Orders: Plan Detail Other Orders Orders: Follow Up +6M (Jesu) Coding Level of Care Code Off vis,new,level 4 Diagnoses Pre-operative cardiovascular exam, new EKG abnormalities c/w ischemia Z01.810; R94.31 Coding Level of Care Code Off vis,new,level 4 Diagnoses Pre-operative cardiovascular exam, new EKG abnormalities c/w ischemia Z01.810; R94.31 03/07/18 1422 <Electronically signed by Duane Nails MD> Date Duane Nails MD Cosigner Signature: Date (if applicable) CC: Ladonna Hawkins MD 12 LEAD ELECTROCARDIOGRAM Observed: 02/27/2018 Status: F Source: TOD 3:51 PM [facility] REPOSITORY [facility] [place] [address] 12 Lead EKG 02/24/18 1523 MR#: [id number] Acct: [id number] Name: KEYLA ESTEVEZ Rep #: [id number] : 1970 47 From: Johnson Peña MD Attending Dr: Zuhair Huynh Status: REG CLI Ordering Dr: Zuhair Goldberg PA-C Date: 02/24/18 Location: LAB Sex: M C Admitted: Test Reason : PREOP Blood Pressure : / mmHG Vent. Rate : 053 BPM Atrial Rate : 053 BPM P-R Int : 142 ms QRS Dur : 102 ms QT Int : 418 ms P-R-T Axes : 050 030 -14 degrees QTc Int : 392 ms Sinus bradycardia T wave abnormality, consider inferior ischemia Abnormal ECG Confirmed by JOHNSON PEÑA MD ([id number]), editor at large AYALA BROWN ([id number]) on 02/27/2018 3:50:54 PM Referred By: Zuhair Goldberg Confirmed By:JOHNSON PEÑA MD 02/27/18 1550 Date Johnson Peña MD CC: Ladonna Hawkins MD; Zuhair GARDNER Signed CBC-COMPLETE BLOOD CNT Collected: 02/24/2018 Status: F Source: TOD NO DIFF 3:12 PM [facility] REPOSITORY TYPE CODE TESTS RESULT OUT OF RANGE REFERENCE UNITS LAB L100.1000 4.4-11.0 K/mm3 Normal WBC 9.9 LAB L100.1200 4.6-6.2 M/mm3 Normal RBC 5.19 LAB L100.1300 13.0-16.5 g/dl Normal HGB 15.2 LAB L100.1400 40-54 % Normal HCT 46.2 LAB L100.1500 80-94 fL Normal MCV 89.0 LAB L100.1600 27.0-32.0 pg Normal MCH 29.3 LAB L100.1700 32-36 g/gl Normal MCHC 32.9 LAB L100.1810 11.6-14.6 % Normal RDW CV 13.3 LAB L100.1820 35.1-43.9 fl Normal RDW SD 43.1 LAB L100.1900 150-450 K/mm3 Normal PLT 303 LAB L100.2000 6.2-12.0 fl Normal MPV 9.3 Performed By: #### L100.0500 #### [facility] [address] [place], [address] BASIC METABOLIC Collected: 02/24/2018 Status: F Source: TOD PROFILE (BMP) 3:12 PM [facility] REPOSITORY TYPE CODE TESTS RESULT OUT OF RANGE REFERENCE UNITS LAB L501.0100 74-106 mg/dL Normal GLU 99 Result Comment: Please note revised GLUCOSE reference range effective 2017. LAB L501.1000 7-18 mg/dL High BUN 20 LAB L501.1100 0.70-1.30 mg/dL Normal CREAT,SERUM 1.02 Result Comment: The validity of the calculated GFR AND GFRAA in patients over 70 years has not been determined. Clinical correlation is essential. LAB L501.1110 >60 mL/min Normal EST GFR 83 Result Comment: Non- GFR Calc LAB L501.1115 >60 mL/min Normal EST GFR - AA 100 Result Comment: GFR Calc LAB L501.1300 10-20 RATIO Normal BUN/CRE 19.6 LAB L501.2200 8.5-10.1 mg/dL CA Normal 8.9 LAB L501.5300 136-145 mmol/L NA Normal 140 LAB L501.5600 3.5-5.1 mmol/L K Normal 3.6 LAB L501.5900 98-107 mmol/L CL Normal 105 LAB L501.6100 21.0-32.0 mmol/L Normal CO2 26.0 LAB L501.6200 5-15 Normal GAP 9 Performed By: #### L500.2500 #### [facility] [address] [place], [place], [address] SURGERY VISIT REPORT Observed: 01/11/2018 Status: F Source: TOD 1:54 PM [facility] REPOSITORY [facility] [address] [place] [address] OFFICE VISIT Date of Service: 01/11/18 MR#: [id number] Acct: [id number] Name: Patrick ESTEVEZ Rep #: [id number] : 1970 Provider: Duane Barnes MD Age/Sex: 47/M Location: [facility] Status: Signed Intake Intake Visit Reasons: C-Scope 01/02 Allergies No Known Allergies Allergy (Verified 12/30/17 08:27) Medications Prednisone 10 mg PO UD 12/30/17 [History Confirmed 12/30/17] Subjective Details: Patient is status post a colonoscopy on 01/02/2018. He was noted to have several polyps in the rectum. The pathology report came back as hyperplastic polyps. Patient has been moving his bowels without difficulty he is not having any abdominal pain. Objective Details: Abdomen is soft and nontender Assessment AND Plan Problems 1. Colon polyp K63.5 Plan Patient will need to have another colonoscopy in 3 years. He can follow-up with me at that time Coding Level of Care Code Off vis,est,level 2 Diagnoses Colon polyp K63.5 01/11/18 1354 <Electronically signed by Duane Barnes MD> Date Duane Barnes MD Cosigner Signature: Date (if applicable) CC: OPERATIVE REPORT Observed: 01/02/2018 Status: F Source: TOD 9:36 AM [facility] REPOSITORY [facility] Medical Records Department [address] [place] [address] Operative Report 01/02/18 0932 MR#: [id number] Acct: [id number] Name: Patrick ESTEVEZ Rep #: [id number] : 1970 47 From: Duane Barnes MD PCP: Ladonna Hawkins MD Status: REG SDC Y Location: [place] [address] Problem List (1) Screen for colon cancer Status: Acute Report of Operation Date of Procedure: 01/02/18 Pre-Operative Diagnosis: z12.11 screening colonoscopy Post-Operative Diagnosis: Same Surgery/Procedure Performed:: 63136 colonoscopy with snare polypectomy Type of Anesthesia:: MAC Description of Procedure: Patient was brought into the endoscopy suite. Placed in the left lateral decubitus position. Patient was given graded anesthesia. Colonoscope was inserted into the rectum and directed through the sigmoid colon, descending colon, transverse colon, descending colon, to the cecum. Operative findings: 1. Cecum: Normal appearance no mass lesions normal ileocecal valve. 2. Ascending colon: Normal appearance no mass lesions. 3. Transverse colon: Normal appearance no mass lesions. 4. Descending colon: Normal appearance no mass lesions. 5. Sigmoid colon: Normal appearance few scattered diverticuli identified no mass lesions. 6. Rectum: Medium-sized polyp was identified just after the first fold it was removed with snare cautery technique and brought back to the channel the scope without difficulty. Patient had 2 other small sessile hyperplastic polyps which were biopsied with cold biopsy forceps.. Scope was withdrawn digital rectal exam was performed showing a smooth prostate with no nodules and no masses within the anus. Patient will need to have another colonoscopy in 3 years. - Admit VTE Documentation VTE Present on Admission: No VTE Mechan Device Prophylaxis: None VTE Pharm Prophylaxis ordered?: No Reason prophylaxis not ordered:: Treatment Not Indicated 01/02/18 0936 <Electronically signed by Duane Barnes MD> Date Duane Barnes MD CC: Ladonna Hawkins MD; Duane Barnes MD Signed HISTORY AND PHYSICAL Observed: 01/02/2018 Status: F Source: WHITE EXAM 9:32 AM [facility] REPOSITORY [facility] Medical Records Department [address] [place] [address] History and Physical 01/02/18 0931 MR#: [id number] Acct: [id number] Name: Patrick ESTEVEZ Rep #: [id number] : 1970 47 From: Duane Barnes MD PCP: Ladonna Hawkins MD Status: REG SDC Y Location: [place] [address] Problem List (1) Screen for colon cancer Status: Acute History of Present Illness Date of Admission: 01/02/18 The patient is a 47 year old M who presents for screening colonoscopy. Past Medical History Medical History: Medical History (Last Reviewed 01/02/18 @ 09:31 by Duane Barnes MD) Abdominal pain R10.9 Allergies No Known Allergies Allergy (Verified 12/30/17 08:27) Home Medications: Ambulatory Orders Medication Instructions Recorded Prednisone 10 mg PO UD 12/30/17 Surgical History: Surgical History (Last Reviewed 01/02/18 @ 09:31 by Duane Barnes MD) History of tonsillectomy Z98.890, Z90.89 History of umbilical hernia repair Z98.890, Z87.19 Smoking Status: Current every day smoker Tobacco Use: Cigarettes - *Family History Maternal Family History: Family History (Last Reviewed 11/14/17 @ 14:11 by Carole Montano) Mother Breast cancer History Items: No pertinent history Review of Systems Cardiovascular: Denies: Chest Pain, Chest Pressure, Chest Tightness, Palpitations Respiratory: Denies: Cough, Hemoptysis, Shortness of breath at rest, Shortness of breath upon exertion, Wheezing Gastrointestinal: Denies: Abdominal Pain, Constipation, Diarrhea, Hematemesis, Nausea, Melena, Vomiting VTE Information - Inpt Only VTE Present on Admission: No VTE Mechan Device Prophylaxis: None VTE Pharm Prophylaxis ordered?: No Reason prophylaxis not ordered:: Treatment Not Indicated Patient Problems: Active and Suspected Problems (Last Reviewed 11/14/17 @ 14:11 by Carole Montano) Screen for colon cancer (Acute) - Physical Exam Lungs: Clear to auscultation Cardiovascular: Regular rate, Regular Rhythm, No murmurs Abdomen: Bowel Sounds Present, Soft, Non Tender, Non-Distended Vital Signs Temp Pulse Resp BP Pulse Ox 97.8 F 59 L 16 123/71 H 97 01/02/18 07:55 01/02/18 07:55 01/02/18 07:55 01/02/18 07:55 01/02/18 07:55 Oxygen Delivery Method Room Air Weight: 241 lb 10.026 oz Body Mass Index (BMI) 32.8 Assessment/Plan All Active Problems (Last Reviewed 11/14/17 @ 14:11 by Carole Montano) Screen for colon cancer (Acute) Will be to perform a colonoscopy on him 01/02/18 0932 <Electronically signed by Duane Barnes MD> Date Duane Barnes MD Cosigner Signature: Date (if applicable) CC: Ladonna Hawkins MD; Duane Barnes MD Signed COLON BIOPSY (CHOOSE Observed: 01/02/2018 Status: F Source: [facility]) 9:00 AM [facility] REPOSITORY Patient: Patrick ESTEVEZ : 1970 (47/M) Acct Num: [id number] Phys: Molly STYLES,Duane Unit Num: [id number] Loc: EN Specimen: [id number] Received: 01/02/18 - 1038 Spec Type: COLON BX TISSUES TISSUES: A. Rectum, NOS B. Rectum, NOS GROSS DESCRIPTION A - Received in fixative is one container labeled with the patient's name and designated polyp rectum. The specimen consists of two pieces of cordero-pink polyp measuring 0.4 x 0.4 x 0.3 cm and 0.5 x 0.3 x 0.2 cm. The specimen is totally submitted in one cassette. B - Received in fixative is one container labeled with the patient's name and designated biopsy rectum. The specimen consists of two irregular fragments of cordero soft tissue that in aggregate measure 0.6 x 0.2 x 0.1 cm. The specimen is totally submitted in one cassette. / Abraham 01/02/18 TC:1 CPT: 32935 x2 HEADER OPERATION: Colonoscopy (MAC) PRE-OP DIAGNOSIS: Screening TISSUE SUBMITTED: A. Polyp of rectum, B. Biopsy of polyp in rectum MICROSCOPIC DESCRIPTION Slides are reviewed. MICROSCOPIC DIAGNOSIS A. Polyp of rectum, biopsy: Fragments of hyperplastic polyp. B. Polyp in rectum, biopsy: Fragments of hyperplastic polyp. SJ:chuy 01/03/18 Signed Jerome Jain 01/03/18 <signature on file> Performed By: #### PCOLBX #### [facility] [address] [place], [address] SURGERY VISIT REPORT Observed: 11/15/2017 Status: F Source: WHITE 8:41 AM [facility] REPOSITORY [facility] [address] [place] [address] OFFICE VISIT Date of Service: 11/14/17 MR#: [id number] Acct: [id number] Name: Patrick ESTEVEZ Rep #: [id number] : 1970 Provider: Meg Wilks PA-C Age/Sex: 47/M Location: [facility] Status: Signed Intake Vital Signs11/14/17 Height 6 ft 11/14/17 Weight: 244 lb 11/14/17 Body Mass Index (BMI) 33.0 Intake Visit Reasons: abdominal Pain L X 1WK General Intern Required: No Is patient in pain?: Yes (left side/flank) Pain scale (1-10): 2 Allergies No Known Allergies Allergy (Verified 11/14/17 14:12) Medications No Known/Unobtainable [No Known Home Medications] 12/16/15 [History Confirmed 11/14/17] PFSH Medical History Abdominal pain (Acute) Surgical History History of tonsillectomy (Acute) History of umbilical hernia repair (Acute) Family History Mother Breast cancer Social History Smoking Status: Current every day smoker alcohol intake: current alcohol intake frequency: a few times a week substance use type: does not use HPI HPI HPI: Patrick ESTEVEZ, is a 47 M who presents with 1 week change in bowel habits. Patient noted he injured his shoulder and was given a cortisone injection and oral antibiotics for epididymitis of the right testicle 1 week ago. Patient noted at that time he had become more constipated and developed left sided abdominal discomfort. Patient notes this discomfort is constant. He is able to focally point to the area of discomfort in the LUQ. He noted on and Tuesday the discomfort was an 8 out of 10 pain. He denies using any laxatives or stool softeners to assist with bowel movements. He notes his stool is pebble-like. He denies change in diet. He denies bright red blood per rectum, melena. He denies family history of colon cancer and colon polyp. He denies shaving a colonoscopy previously. Patient denies difficulty with urination. He notes right testicle discomfort has resolved. He denies previous M.I., stroke and blood clots. He notes a few years ago he was evaluated by a audio/video engineer for chest discomfort. He had a normal stress test and did not have any intervention at that time. He did not have to follow-up. Patient noted chest discomfort was due to working at a stressful job. Exam Const General: cooperative, healthy appearing, comfortable, no acute distress [facility] Head: normal to inspection Eyes General: appearance normal, both eyes and all related structures Neck Neck mass: No Resp Effort AND Inspection: normal respiratory effort Auscultation: clear to auscultation bilaterally Cardio Rate: regular rate Rhythm: regular rhythm GI Inspection: normal to inspection Palpation: soft, nontender Auscultation: normal bowel sounds Skin General: no rashes or lesions noted Neuro General: no focal motor deficits Extrem General: normal to inspection Psych Appearance: grossly normal Affect: normal affect Assessment AND Plan Problems 1. Constipation, unspecified constipation type K59.00 2. Left upper quadrant pain R10.[address] Barnes will plan to perform a colonoscopy with possible biopsies. Procedure was explained in detail, risks and benefits. Bowel prep instructions were explained. Patient has had the opportunity to ask and have questions answered. Patient verbally understands and agrees with the plan. Patient desires to proceed. He will also discuss procedure with his insurance to assure coverage. Patient understands since colonoscopy is diagnostic, he may be responsible for some of the coverage. Our orthopedic mechanic will call to schedule this patient. Orders Orders: Coding Level of Care Code Off vis,est,level 4 Diagnoses Constipation, unspecified constipation type K59.00 Constipation type: unspecified constipation type Left upper quadrant pain R10.12 Abdominal location: left upper quadrant 11/15/17 0841 <Electronically signed by Meg Wilks PA-C> Date Meg Wilks PA-C Cosigner Signature: Date (if applicable) CC: Ladonna [place] MD BASIC METABOLIC Collected: 06/18/2017 Status: F Source: TOD PROFILE (BMP) 7:51 AM [facility] REPOSITORY Order Comment: Order Date: 05/17/17 Order Info: [id number] - BMP Order Info: 31504-1 - LIPID TYPE CODE TESTS RESULT OUT OF RANGE REFERENCE UNITS LAB L501.0100 74-106 mg/dL Normal GLU 90 Result Comment: Please note revised GLUCOSE reference range effective 2017. LAB L501.1000 7-18 mg/dL Normal BUN 15 LAB L501.1100 0.70-1.30 mg/dL Normal CREAT,SERUM 0.85 Result Comment: The validity of the calculated GFR AND GFRAA in patients over 70 years has not been determined. Clinical correlation is essential. LAB L501.1110 >60 mL/min Normal EST GFR 103 Result Comment: Non- GFR Calc LAB L501.1115 >60 mL/min Normal EST GFR - AA 124 Result Comment: GFR Calc LAB L501.1300 10-20 RATIO Normal BUN/CRE 17.7 LAB L501.2200 8.5-10.1 mg/dL CA Normal 8.5 LAB L501.5300 136-145 mmol/L NA Normal 141 LAB L501.5600 3.5-5.1 mmol/L K Normal 4.1 LAB L501.5900 98-107 mmol/L High CL 109 LAB L501.6100 21.0-32.0 mmol/L Normal CO2 24.0 LAB L501.6200 5-15 Normal GAP 8 Performed By: #### L500.2500, L500.4100 #### [facility] [address] [place], [address] LIPID PROFILE Collected: 06/18/2017 Status: F Source: TOD 7:51 AM [facility] REPOSITORY Order Comment: Order Date: 05/17/17 Order Info: [id number] - BMP Order Info: 50126-9 - LIPID TYPE CODE TESTS RESULT OUT OF RANGE REFERENCE UNITS LAB L501.4900 200 mg/dL Normal CHOL 199 Result Comment: <200 mg/dL Desirable 200-240 mg/dL Borderline >240 mg/dL High Risk LAB L501.5000 mg/dL Normal TRIG 138 Result Comment: The drugs N-Acetylcysteine and Metamizole may falsely depress this assay. Serum Triglycerides Reference Interval Normal <150 mg/dL Borderline high 150 - 199 mg/dL High 200 - 499 mg/dL Very High > or = 500 mg/dL LAB L501.6400 mg/dL Low HDL 35 Result Comment: The drugs N-Acetylcysteine and Metamizole may falsely depress this assay. Reference Range HDL <40 mg/dL Low HDL Cholesterol HDL >or= 60 mg/dL High HDL Cholesterol LAB L501.6500 0-130 mg/dL High LDL 136 LAB L501.6600 5-40 mg/dL Normal VLDL 28 Performed By: #### L500.2500, L500.4100 #### [facility] [address] [place], [address] SURGERY VISIT REPORT Observed: 04/26/2017 Status: F Source: TOD 4:24 PM [facility] REPOSITORY [facility] [address] [place] [address] OFFICE VISIT Date of Service: 04/19/17 MR#: [id number] Acct: [id number] Name: Patrick ESTEVEZ Rep #: [id number] : 1970 Provider: Duane Barnes MD Age/Sex: 46/M Location: [facility] Status: Signed Intake Vital Signs04/19/17 Height 6 ft 04/19/17 Weight: 250 lb Intake Visit Reasons: 1 year f/u umbilical hernia, incision site painful General Intern Required: No Is patient in pain?: No Allergies No Known Allergies Allergy (Verified 04/19/17 15:07) Medications No Known/Unobtainable [No Known Home Medications] 12/16/15 [History Confirmed 04/19/17] [facility] Medical History Abdominal pain (Acute) Surgical History History of tonsillectomy (Acute) History of umbilical hernia repair (Acute) Family History Mother Breast cancer Social History Smoking Status: Current every day smoker alcohol intake: current alcohol intake frequency: a few times a week substance use type: does not use HPI HPI HPI: Patrick ESTEVEZ, is a 46 M who presents to the office today for evaluation of a possible recurrence of his hernia at his umbilicus. Patient has been noticing he is having increasing discomfort in the area he has not noticed any bulges. He has had not had any change in his bowel or bladder habits. He has not been experiencing any fevers or chills. He has had no discharge from his incision. ROS General General: No weight change, appetite, fatigue, colon cancer, breast cancer or weakness HEENT HEENT: No difficulty swallowing, eye injury, eye surgery, swollen glands or hoarseness Endo Endocrine: No thyroid disease, diabetes mellitus, thyroid cancer, Hair loss, heat intolerance or cold intolerance Skin Skin: No rash or changing moles Breast Breast: No left breast lump, right breast lump, nipple discharge, breast pain, abnormal mammogram, abnormal US or breast enlargement Musc Musculoskeletal: Yes back problems; no arthritis, rheumatoid arthritis, gout or joint pain Cardio Cardiovascular: No murmur, pacemaker, heart disease, atrial fibrillation, high blood pressure, heart attack, heart stent, palpitations, shortness of breat with exertion or chest pain Psych Psychiatric: No depression, anxiety or hearing voices Resp Respiratory: No shortness of breath, No sleep apnea, No cough, No COPD, No asthma, No emphysema, No wheezing Gastro Gastrointestinal: Yes abdominal pain, No nausea or vomiting, No diarrhea, No constipation, No blood in stool, No acid reflux, No hemorrhoids, No ulcers, No gallbladder problem, No black,tarry stools Olivier Hematologic: No blood thinners, No blood disorders, No bleeding, No anemia, No blood clots Neuro Neurologic: No system reviewed and no additional complaints, except as docu, No as per HPI, No abnormal walking, No abnormal hearing, No abnormal movements, No abnormal speech, No behavioral changes, No burning sensations, No confusion, No seizure-like activity, No unsteadiness, No dizziness, No localized weakness, No frequent falls, No headache(s), No lack of coordination, No loss of vision, No memory loss, No numbness, No other visual disturbances, No radiating pain, No restless legs, No sensory deficit, No fainting, No tingling, No tremor(s), No weakness, No other Exam Chest Breast Palpation: No nipple discharge Cardio Heart Sounds: no murmurs GI Other: Patient's abdominal exam shows a well-healed scar infraumbilically. There is no signs of any recurrence of hernia. There is no signs of cellulitis or infection. This is a stable exam. Assessment AND Plan Problems 1. Periumbilical abdominal pain R10.33; R10.33 Plan At the present time there is no surgical interventions that need to be performed. I believe that he is noticing some stretching of scar tissue from the mesh. I have instructed him to do stretching exercises. He is to follow-up with me if he notices a bulge. 04/26/17 0277 <Electronically signed by Duane Barnes MD> Date Duane Barnes MD Cosign Signature: Date (if applicable) CC: Ladonna [place] MD ALLERGIES ALLERGIES DATE TYPE / CODE NAME / CODE REACTION SEVERITY SOURCE 03/07/2018 Drug No Known Unknown [place] [facility] Allergy/4160 Allergies/F00 [facility] 22801(SNOMED [id number](RXNOR Repository CT) M) ENCOUNTERS ENCOUNTERS ADMIT/DISCHARGE ACCOUNT ADMITTING ENCOUNTER LOCATION SOURCE NUMBER CLASS 03/27/2018 [id number] Ambulatory [place] 0 [facility] ing:[facility] Repository 03/23/2018 [id number] Ambulatory BMSBuilding:B [place] 6 [place] Repository 03/23/2018 [id number] Ambulatory [place] 0 [facility] ing:[facility] Repository 03/17/2018 [id number] Ambulatory BMSBuilding:W [place] 2 [facility] Repository 03/17/2018 [id number] Ambulatory [place] 9 [facility] Hospital ing:[facility] Repository 03/11/2018 [id number] Ambulatory [place] 4 [facility] Hospital ing:LAB Repository 03/07/2018/ [id number] Ambulatory BMSBuilding:B [place] 8 0 [facility] Repository 02/24/2018 [id number] Ambulatory [place] 7 [facility] [facility] Hospital ing:LAB Repository 02/24/2018 [id number] Ambulatory BMSBuilding:W [place] 7 [facility] Repository 01/11/2018/ [id number] Ambulatory BMSBuilding:B [place] 8 6 [facility] Hospital Repository 01/02/2018/ [id number] Ambulatory [place] 8 9 [facility] Hospital ing:EN Repository 01/02/2018 [id number] Ambulatory BMSBuilding:B [place] 7 MS.[facility] Hospital Repository 11/14/2017/ [id number] Ambulatory BMSBuilding:B [place] 8 5 [facility] Hospital Repository 06/18/2017 [id number] Ambulatory [place] 6 [facility] Hospital ing:LAB Repository 04/19/2017/ [id number] Ambulatory BMSBuilding:B [place] 7 4 [facility] Repository PAYERS PAYERS ENCOUNTER GUARANTOR PAYER SUBSCRIBER SOURCE 03/27/2018 KEYLA ESTEVEZ1930 [facility] [id number] Number[place] Repository [id number]: [phone] [id number] [phone] () Date:3743-68-97XD [address]MINSERAFIN AHUMADA [address]HB: 03/27/2018 Secondary NOT GIVENUNK [place] Insurance:SELF PAY [facility] Number: Effective Repository Date:2018-03-27 03/23/2018 KEYLA Floyd Primary KEYLA [place]1930 Insurance:[place]: [facility] [id number] [place] Number: Repository [id number]: 330 [id number] [phone] () Date:6465-35-54TD [address]DAVIDSERAFIN AHUMADA [address]JE: 03/23/2018 Secondary NOT GIVENUNK [place] Insurance:SELF PAY [facility] Number: Effective Repository Date:2018-03-23 03/23/2018 KEYLA S Primary KEYLA [place]1930 Insurance:[place]: [id number] [place] Number[place] Repository [id number]: 330 [id number] [phone] () Date:2723-10-88IS [address]DAVIDSERAFIN AHUMADA [address]VE: 03/23/2018 Secondary NOT GIVENUNK Tod Insurance:SELF PAY [facility] Number: Effective Repository Date:2018-03-07 03/17/2018 KEYLA S Primary KEYLA [place]1930 Insurance:[place]: [facility] [id number] [facility] [place] Number: Repository [address]Bjr: 330 [id number] [phone] () Date:5984-84-52QS [address]MINSERAFIN AHUMADA [address]XZ: 03/17/2018 Secondary NOT GIVENUNK [place] Insurance:SELF PAY [facility] Number: Effective Repository Date:2018-03-17 03/17/2018 KEYLA S Primary KEYLA [place]1930 Insurance:[place]: [facility] [id number] [place] Number: Repository [address]Rph: 330 [id number] [phone] (HP) Date:0287-37-75XG [address]AF[address] AHUMADA [address]HV: 03/17/2018 Secondary NOT GIVENUNK [place] Insurance:SELF PAY [facility] Number: Effective Repository Date:2018-03-07 03/11/2018 KEYLA S Primary KEYLA [place]1930 Insurance:[place]: [facility] [id number] [facility] [place] Number: Repository [id number]: 330 [id number] [phone] (HP) Date:3586-32-52CT [address]MINSERAF[address] AHUMADA [address]LO: 03/11/2018 Secondary NOT GIVENUNK Tod Insurance:SELF PAY [facility] Number: Effective Repository Date:2018-03-11 03/07/2018 KEYLA S Primary KEYLA [place]1930 Insurance:[place]: [facility] [id number] [place] Number[place] Repository [id number]: 330 [id number] [phone] (HP) Date:3344-71-67VC [address]MINSERAFIN AHUMADA [address]NG: 03/07/2018 Secondary NOT GIVENUNK Tod Insurance:SELF PAY [facility] Number: Effective Repository Date:2018-03-07 02/24/2018 KEYLA S Primary KEYLA [place]1930 Insurance:[place]: [facility] [id number] [facility] [place] Number: Repository [id number]: 330 [id number] [phone] (HP) Date:3362-32-02AN [address]MINSERAFIN AHUMADA [address]XK: 02/24/2018 Secondary NOT GIVENUNK Tod Insurance:SELF PAY [facility] Number: Effective Repository Date:2018-02-24 02/24/2018 KEYLA S Primary KEYLA S [place]1930 Insurance:[place]: [facility] [id number] Hospital [place] Number: Repository [address]Qya: 330 [id number] [phone] (HP) Date:9374-06-62CG [address], [place] [address]IN: 02/24/2018 Secondary NOT GIVENUNK Tod Insurance:SELF PAY [facility] Number: Effective Repository Date:2018-02-24 01/11/2018 W JOSÉ Primary W JOSÉ Tod [id number] Insurance:[place]: [facility] [id number] [facility] [place] Number: Repository [address]Koq: 330 [id number] [phone] (HP) Date:7472-39-99ZE [address] [address]DU: 01/11/2018 Secondary NOT GIVENUNK Tod Insurance:SELF PAY [facility] Number: Effective Repository Date:2018-01-11 01/02/2018 W JOSÉ Primary W JOSÉ Sorensonoster [id number] Insurance:[place]: [facility] [id number] [facility] [place] Number: Repository [id number]: 330 [id number] [phone] (HP) Date:7451-07-91LF [address] [address]NM: 01/02/2018 Secondary NOT GIVENUNK [place] Insurance:SELF PAY [facility] Number: Effective Repository Date:2017-11-29 01/02/2018 W JOSÉ Primary W JOSÉ Sorensonoster [id number] Insurance:[place]: [facility] [id number] [facility] [place] Number: Repository [address]Cwl: 330 [id number] [phone] (HP) Date:0497-96-16DJ [address]MINSERAF[address] AH[address]ADA [address]OP: 01/02/2018 Secondary NOT GIVENUNK Tod Insurance:SELF PAY [facility] Number: Effective Repository Date:2018-01-02 11/14/2017 W JOSÉ Primary W JOSÉ [place]1930 Insurance:[place]ALTH [place]: [facility] [id number] Hospital [place] Number: Repository [address]Atr: 330 [id number] [phone] () Date:2242-78-06SL [address], [place] [address]XB: 11/14/2017 Secondary NOT GIVENUNK [place] Insurance:SELF PAY [facility] Number: Effective Repository Date:2017-11-11 06/18/2017 W JOSÉ Primary W JOSÉ [place]1930 Insurance:[place]: [facility] [id number] Hospital [place] Number: Repository [id number]: 330 [id number] [phone] () Date:6966-15-76IN [address]MINSERAFIN AHUMADA [address]FT: 06/18/2017 Secondary NOT GIVENUNK [place] Insurance:SELF PAY [facility] Number: Effective Repository Date:2017-06-18 04/19/2017 W JOSÉ Primary W JOSÉ [place]1930 Insurance:[place]: [facility] [id number] Hospital [place] Number: Repository [id number]: 330 [id number] [phone] () Date:0856-55-11EE [address]MINSERAF[address] AH[address]ADA [address]QH: 04/19/2017 Secondary NOT GIVENUNK Tod Insurance:SELF PAY [facility] Number: Effective Repository Date:2017-04-14
== END ==
PROVIDERS: Family Provider Family Medicine; PCP Family Medicine; Referring Provider Internal Medicine Cardiovascular Disease; Visit Provider Internal Medicine Cardiovascular Disease
DX: Z01.810 Encounter for preprocedural cardiovascular examination (principal); R94.31 Abnormal electrocardiogram [ECG] [EKG]
CPT/HCPCS: 93017; 93350; Q9957; A4216; C8928

== ENCOUNTER → 2018-03-27 15:17 | Outpatient (CLI) | payer OTHER, SELFPAY ==
[2018-03-07 13:59] VITALS: BMI 35.4
[2018-03-27 17:55] LABS: Prothrombin Time (Protime)PT. 12.7 SECONDS (11.7-14.9)
[2018-03-27 17:56] LABS: Partial Thromboplast Time 36.1 Seconds (24.1-36.2)
[2018-03-27 18:26] LABS: AST(SGOT) 29 U/L (15-37); Alanine Aminotransfer ALT/SGPT 46 U/L (16-61); Albumin, Serum 3.7 g/dL (3.2-5.0); Alkaline Phosphatase 71 U/L (45-117); Anion Gap 13 (5-15); BUN 19 mg/dL (7-18); BUN/Creat Ratio 19.5 RATIO (10-20); Calcium,Total 8.7 mg/dL (8.5-10.1); Chloride 104 mmol/L (98-107); Creatinine, Serum 0.97 mg/dL (0.70-1.30); EST Glomerular Filtration Rate 87 mL/min (>60); Est Glom Filt Rate - Afr Amer 106 mL/min (>60); Ferritin 121 ng/mL (26-388); GGTP 220 U/L (15-85); Globulin 3.6 g/dL (2.2-4.2); Glucose 80 mg/dL (74-106); Potassium 3.7 mmol/L (3.5-5.1); Protein, Total 7.3 g/dL (6.4-8.2); Sodium Level 141 mmol/L (136-145)
[2018-03-29 11:19] LABS: HEPATITIS B SURFACE AG Negative (Negative)
[2018-03-29 11:25] LABS: Hep B Surface Antibodies Reactive (.); Hep C Antibodies <0.1 s/co ratio (0.0-0.9); Hepatitis B Core AB IgM Negative (Negative)
== END ==
PROVIDERS: Family Provider Family Medicine; PCP Family Medicine; Visit Provider Family Medicine
DX: R94.5 Abnormal results of liver function studies (principal)
CPT/HCPCS: 36415; 80053; 82728; 82977; 85610; 85730; 86705; 86706; 86803; 87340

== ENCOUNTER → 2018-11-25 08:43 | Outpatient (CLI) | payer OTHER, SELFPAY ==
[2018-09-28 15:56] VITALS: BMI 34.2
[2018-11-25 09:03] LABS: Hematocrit 46.9 % (40-54); Hemoglobin 15.8 g/dL (13.0-16.5); Mean Corp Hgb Conc 33.7 g/dL (32-36); Mean Corpuscular Hgb 29.5 pg (27.0-32.0); Mean Corpuscular Volume 87.5 fL (80-94); Mean Platelet Vol. 8.7 fl (6.2-12.0); Platelet Count 300 K/mm3 (150-450); RBC Distribution Width CV 13.1 % (11.6-14.6); RBC Distribution Width SD 41.6 fl (35.1-43.9); Red Blood Count 5.36 M/mm3 (4.6-6.2)
[2018-11-25 09:27] LABS: Anion Gap 7 (5-15); BUN 12 mg/dL (7-18); BUN/Creat Ratio 12.3 RATIO (10-20); Calcium,Total 8.7 mg/dL (8.5-10.1); Chloride 110 mmol/L (98-107); Creatinine, Serum 0.98 mg/dL (0.70-1.30); EST Glomerular Filtration Rate 87 mL/min (>60); Est Glom Filt Rate - Afr Amer 105 mL/min (>60); Glucose 101 mg/dL (74-106); Sodium Level 141 mmol/L (136-145)
== END ==
PROVIDERS: Family Provider Family Medicine; PCP Family Medicine; Referring Provider Orthopaedic Surgery; Visit Provider Orthopaedic Surgery
DX: Z01.818 Encounter for other preprocedural examination (principal)
CPT/HCPCS: 36415; 80048; 85027

== ENCOUNTER → 2019-04-06 08:53 | Outpatient (CLI) | payer OTHER, SELFPAY ==
[2019-04-05 14:31] VITALS: BMI 35.4
[2019-04-06 11:02] LABS: AST(SGOT) 29 U/L (15-37); Alanine Aminotransfer ALT/SGPT 34 U/L (16-61); Albumin, Serum 3.7 g/dL (3.2-5.0); Alkaline Phosphatase 68 U/L (45-117); Bilirubin, Direct 0.14 mg/dL (0.00-0.30); Cholesterol 233 mg/dL (200); Globulin 3.6 g/dL (2.2-4.2); High Density Lipoprotein 38 mg/dL; Protein, Total 7.3 g/dL (6.4-8.2); Triglycerides 230 mg/dL; Very Low Density Lipoprotein 46 mg/dL (5-40)
== END ==
PROVIDERS: Family Provider Family Medicine; PCP Family Medicine; Referring Provider Internal Medicine Cardiovascular Disease; Visit Provider Internal Medicine Cardiovascular Disease
DX: Z13.220 Encounter for screening for lipoid disorders (principal)
CPT/HCPCS: 36415; 80061; 80076

== ENCOUNTER → 2019-04-19 10:32 | Outpatient (CLI) | payer OTHER, SELFPAY ==
[2019-04-05 14:31] VITALS: BMI 35.4
--- NOTE | 2019-04-19 10:32 | ECHOD_ITS ---
Reason For Study: PRE OP CLEARANCE Procedure This was a 2D Doppler, Color Flow transthoracic echocardiogram. Exam performed in department. Left Ventricle Normal size and thickness. The estimated ejection fraction is 55 %. Stage 1 diastolic dysfunction. No regional wall motion abnormalities noted. Right Ventricle Normal size and thickness. Normal systolic function. Atria Normal left atrium. Normal right atrium. Normal atrial septum. Mitral Valve The mitral valve is structurally normal. No prolapse or stenosis seen. Tricuspid Valve Normal tricuspid valve. Trivial tricuspid valve insufficiency. Right ventricular systolic pressure estimated to be 23 mmHg. Aortic Valve Normal aortic valve. Trisinus/trileaflet aortic valve. Pulmonic Valve Normal pulmonic valve. Great Vessels Normal aortic root. Normal arch. Normal inferior vena cava. Inferior vena cava collapse with sniff. Pericardium/Pleural No pericardial effusion. MMode/2D Measurements & Calculations LVIDd: 5.3 cm IVSd: 0.96 cm Ao root diam: 2.9 cm LVIDs: 3.5 cm LVPWd: 1.0 cm RVDd: 3.4 cm FS: 33.4 % LAV(MOD-bp): 56.0 ml LA A4 area: 18.7 cm2 LA dimension(2D): 4.3 cm LAV(MOD-bp) Indexed: 23.9 ml/m2 LAV(MOD-sp2): 52.1 ml LAV(MOD-sp4): 52.5 ml RA A4 area: 17.2 cm2 Time Measurements MV dec time: 0.16 sec Doppler Measurements & Calculations MV E max el: 65.4 cm/sec Lat Peak E' El: 9.6 cm/sec Med Peak E' El: 6.6 cm/sec MV A max el: 75.3 cm/sec E/E' lat: 6.8 E/E' med: 9.9 MV E/A: 0.87 Ao V2 max: 110.2 cm/sec LV V1 max: 87.9 cm/sec PA V2 max: 87.9 cm/sec Ao max P.9 mmHg LV V1 max P.1 mmHg TR max el: 210.6 cm/sec TR max P.7 mmHg Interpretation Summary The estimated ejection fraction is 55 %. Stage 1 diastolic dysfunction. Trivial tricuspid valve insufficiency. Right ventricular systolic pressure estimated to be 23 mmHg. Compared to echo report dated 03/17/2018, no appreciable changes noted. Ordering Physician: Duane Nails Referring Physician: Dell Hawkins Performed By: Melisa Drummond RDCS, RVT
== END ==
PROVIDERS: Family Provider Family Medicine; PCP Family Medicine; Referring Provider Internal Medicine Cardiovascular Disease; Visit Provider Internal Medicine Cardiovascular Disease
DX: Z01.810 Encounter for preprocedural cardiovascular examination (principal); R94.31 Abnormal electrocardiogram [ECG] [EKG]
CPT/HCPCS: 93306

== ENCOUNTER → 2019-04-26 13:03 | Outpatient (CLI) | payer OTHER, SELFPAY ==
[2019-04-05 14:31] VITALS: BMI 35.4
--- NOTE | 2019-04-26 13:04 | STEWCON_ITS ---
Reason For Study: PRE-OP CLEARANCE Stress Results Protocol: Stress Echocardiogram Maximum Predicted HR: 171 bpm Target HR: 145 bpm % Maximum Predicted HR: 88 % DurationHeart Rate Stage (mm:ss) (bpm) BP Comment BASELINE 62 120/78DILUTED DEFINITY 5 CC USED MEHDI PROTOCOL- STAGE 1 3:00 106 124/74NO SX MEHDI PROTOCOL- STAGE 2 3:00 120 122/74SL SOB MEHDI PROTOCOL- STAGE 3 3:00 150 138/78SOB, NO CP RECOVERY 83 124/70 Stress Duration: 9:00 mm:ss Maximum Stress HR: 150 bpm Baseline Echocardiogram Findings The estimated ejection fraction is 55 %. Stress Echo Wall motion Data Resting WM Intermediate WM Stress WM Resting Wall Motion Wall Motion Stress No regional wall motion No regional wall motion abnormalities noted. abnormalities noted. EKG Data The baseline ECG displays normal sinus rhythm. The patient exercised according to the regular Mehdi protocol for a total duration of 9:02. The maximum heart rate attained was 150 beats per minute. This was 87% of maximum predicted heart rate. The patient exercised into stage 4 of the Mehdi protocol. During stress, there were no ST or T wave changes noted to suggest ischemia. No clinical angina was noted. No arrhythmias noted. Interpretation Summary The estimated ejection fraction is 55 %. Normal, adequate, treadmill echocardiogram. Negative for ischemia by EKG and echocardiographic criteria. No anginal symptoms noted. No arrhythmias noted. Appropriate blood pressure response to exercise. Average exercise capacity for age. Test terminated due to the attainment target heart rate. Final LVEF is 75%. Decreased sensitivity due to poor echo windows requiring Definity agent. Patient tolerated the procedure well. No complications. The study was technically difficult. Contrast injection was performed. Ordering Physician: Duane Nails Referring Physician: Duane Nails Performed By: Elisabeth Leos, RDCS, RVT
== END ==
PROVIDERS: Family Provider Family Medicine; PCP Family Medicine; Referring Provider Internal Medicine Cardiovascular Disease; Visit Provider Internal Medicine Cardiovascular Disease
DX: Z01.810 Encounter for preprocedural cardiovascular examination (principal); R94.31 Abnormal electrocardiogram [ECG] [EKG]
CPT/HCPCS: 93017; 93350; Q9957; A4216; C8928

== ENCOUNTER → 2020-12-03 16:45 | Outpatient (CLI) | payer OTHER, SELFPAY ==
[2019-11-12 10:37] VITALS: BMI 35.4
== END ==
PROVIDERS: PCP Family Medicine; Referring Provider Family Medicine; Visit Provider Family Medicine
DX: Z20.822 Contact with and (suspected) exposure to COVID-19 (principal)
CPT/HCPCS: 36415; 86769

== ENCOUNTER → 2020-12-08 07:30 | Outpatient (CLI) | payer OTHER, SELFPAY ==
[2019-11-12 10:37] VITALS: BMI 35.4
[2020-12-08 10:25] LABS: AST(SGOT) 25 U/L (15-37); Alanine Aminotransfer ALT/SGPT 41 U/L (16-61); Albumin, Serum 3.5 g/dL (3.2-5.0); Alkaline Phosphatase 68 U/L (45-117); Anion Gap 6 (5-15); BUN 12 mg/dL (7-18); BUN/Creat Ratio 13.6 RATIO (10-20); Bilirubin, Direct 0.07 mg/dL (0.00-0.30); Calcium,Total 8.5 mg/dL (8.5-10.1); Chloride 107 mmol/L (98-107); Cholesterol 226 mg/dL (200); Creatinine, Serum 0.88 mg/dL (0.70-1.30); EST Glomerular Filtration Rate 97 mL/min (>60); Est Glom Filt Rate - Afr Amer 117 mL/min (>60); Globulin 3.7 g/dL (2.2-4.2); Glucose 98 mg/dL (74-106); High Density Lipoprotein 39 mg/dL; Protein, Total 7.2 g/dL (6.4-8.2); Sodium Level 138 mmol/L (136-145); Triglycerides 257 mg/dL; Very Low Density Lipoprotein 51 mg/dL (5-40)
== END ==
PROVIDERS: PCP Family Medicine; Referring Provider Family Medicine; Visit Provider Family Medicine
DX: Z13.1 Encounter for screening for diabetes mellitus (principal); Z12.5 Encounter for screening for malignant neoplasm of prostate; E78.00 Pure hypercholesterolemia, unspecified; R79.89 Other specified abnormal findings of blood chemistry
CPT/HCPCS: 36415; 80048; 80061; 80076; 84153; G0103

== ENCOUNTER → 2021-10-06 | Outpatient (CLI) | payer OTHER, SELFPAY ==
--- NOTE | 2021-10-06 15:21 | US_ITS ---
STUDY: SCROTUM ULTRASOUND REASON FOR EXAM: Male, 51 years old. TESTICULAR PAIN, LEFT TECHNIQUE: Ultrasound evaluation of the scrotum was performed with color Doppler and static roberts-scale imaging. COMPARISON: None. FINDINGS: RIGHT TESTICLE INTRATESTICULAR: There is a normal size of the right testicle. The right testicle measures 4.8 x 3.6 x 2.2 cm. There is a homogenous echotexture. There is normal arterial and normal venous vascularity. There is no demonstrated right testicular mass or cyst. EXTRATESTICULAR: The epididymis is enlarged. The epididymis head measures 1.4 x 1.5 x 1.3 cm. There is normal vascularity of the epididymis. There is a small epididymal cyst measuring 9 x 9 x 8 mm There is moderate-sized hydrocele. There is no demonstrated varicocele. There is no demonstrated extratesticular mass or cyst. LEFT TESTICLE INTRATESTICULAR: There is a normal size of the left testicle. The left testicle measures 4.8 x 3.5 x 2.4 cm. There is a heterogeneous echotexture. Tiny hyperechoic focus measuring 1 x 1 x 1 mm possibly a nonshadowing calcification. There is normal arterial and normal venous vascularity. There is no demonstrated left testicular mass or cyst. EXTRATESTICULAR: The epididymis is normal in size. The epididymis head measures 1.2 x 1.1 x 0.9 cm. There is normal vascularity of the epididymis. There is tiny epididymal cyst measuring 3 x 3 x 3 mm. There is moderate sized hydrocele. There is no demonstrated varicocele. There is no demonstrated extratesticular mass or cyst. There is a hyperechoic structure measuring 3.3 cm superior to the left testis which has the appearance of fat likely due to inguinal canal hernia US/Testicular with Arterial Flow IMPRESSION: No evidence for testicular mass or torsion. Multiple tiny nonshadowing calcification in the left testis. Small bilateral epididymal cysts. Moderate sized bilateral hydroceles Probable left inguinal canal hernia containing fat. CT would be helpful for more definitive evaluation if clinically warranted Electronically Signed: Tres Bueno MD at 16:52 EDT ,
== END | disposition home or self-care (01) ==
PROVIDERS: PCP Family Medicine; Visit Provider Family Medicine
DX: N50.3 Cyst of epididymis (principal); N43.3 Hydrocele, unspecified; N50.812 Left testicular pain
CPT/HCPCS: 76870; 93976

== ENCOUNTER → 2021-10-08 | Outpatient (CLI) | payer OTHER, SELFPAY ==
--- NOTE | 2021-10-08 15:48 | CT_ITS ---
INDICATION: LEFT TESTICULAR PAIN EXAMINATION: CT Pelvis W/O Contrast Injection TECHNIQUE: Routine noncontrast bone CT protocol was performed of the pelvis. 2-D reformats were performed by the technologist. A radiation dose optimization technique was used for this scan. IV Contrast dosage and agent: None. COMPARISON: None. FINDINGS: SOFT TISSUES: No soft tissue swelling or gas. No radiopaque foreign body. BONES/JOINTS: No acute fracture or subluxation. Normal alignment. Moderate degenerative disc disease and spondylosis at L5-S1. No sclerotic or destructive changes. OTHER: Moderate bilateral hydroceles. Small fat-containing left inguinal hernia. CT/Pelvis without IV Contrast IMPRESSION: Moderate bilateral hydroceles. Small fat-containing left inguinal hernia. Electronically Signed: Dell Cleveland MD at 16:19 EDT ,
== END | disposition home or self-care (01) ==
PROVIDERS: PCP Family Medicine; Visit Provider Family Medicine
DX: N43.3 Hydrocele, unspecified (principal); K40.90 Unilateral inguinal hernia, without obstruction or gangrene, not specified as recurrent; N50.812 Left testicular pain
CPT/HCPCS: 72192

== ENCOUNTER → 2023-05-10 | Outpatient (CLI) | payer OTHER, SELFPAY ==
--- OUTSIDE RECORDS SUMMARY | 2023-05-10 07:22 | XMS RPT_ITS | CCD ---
Author Name Unknown Address [address] [place] [address] Organization [facility] Results Test Name Value Interpretation Reference Range Facil ity Progress note 03-30-2021 Note Date & Type Note Facility 03-30-2021 Note HNO ID: [id number] Author: Meg Lamas PA-C Service: ? Author Type: Physician Cribber Type: Progress Notes Filed: 03/30/2021 1:10 PM Note Text: FOLLOW UP VISIT - ENDOSCOPY NAME: Chirag Davies CLINIC NO.: [id number] DATE OF SERVICE: 03/30/2021 : 1970 REFERRING PHYSICIAN: Dell Hawkins MD Chirag is a patient I am following for history of colon polyps and encounter for surveillance colonoscopy. Dr. Barnes performed lower endoscopy on 03/12/2021. The patient was found to have sigmoid diverticulosis, and a 5 mm sigmoid polyp which was removed. Pathology demonstrated: FINAL DIAGNOSIS Sigmoid colon, polypectomy - Hyperplastic polyp. TPP/lk 03/13/2021 ? The patient notes no complaints since the procedure. VITALS: Blood pressure 130/82, pulse 94, temperature 36.4 ?C (97.5 ?F), temperature source Temporal Artery, weight 120.7 kg (266 lb), SpO2 96 %. General: patient is alert, cooperative, pleasant and in no acute distress On examination, the abdomen is benign. Assessment IMPRESSION: s/p colonoscopy with polypectomy, hyperplastic polyp. Prior history of colon polyps PLAN: The operative findings and pathology report were reviewed with the patient, and the patient has had the opportunity to ask questions and have questions answered. If the patient notes any problems or changes in bowel function, the patient should contact me immediately. Reviewed pathology from patient's prior colonoscopy which was performed by Dr. Barnes 01/02/18. Pathology from that procedure actually showed hyperplastic polyp tissue as well. Discussed with patient that based on updated colorectal surveillance guidelines, he would be due for repeat colonoscopy in 10 years. Patient verbalized understanding of all above and agreed with the plan HM updated and recall letter generated. Diagnoses: (K63.5) Hyperplastic polyp of sigmoid colon (primary encounter diagnosis) I spent 22 minutes in the visit, with more than 50% of the total [id number] time of the visit in counseling / coordination of care. Meg Lamas PA-C [facility] Clinical Note 03-12-2021 Note Date & Type Note Facility 03-12-2021 Note HNO ID: [id number] Author: Cookie Ugarte RN Service: ? Author Type: Registered Nurse Type: Nursing Progress Note Filed: 03/12/2021 9:58 AM Note Text: Patient ambulated to restroom. A moderate amount of air was passed rectally. [facility] Clinical Note 03-12-2021 Note Date & Type Note Facility 03-12-2021 Note HNO ID: [id number] Author: Cookie Ugarte RN Service: ? Author Type: Registered Nurse Type: Nursing Progress Note Filed: 03/12/2021 9:36 AM Note Text: Abdomen distended and tender. Instructed patient to pass gas rectally. Will continue to monitor. [facility] Progress note 02-25-2021 Note Date & Type Note Facility 02-25-2021 Note HNO ID: [id number] Author: Meg Lamas PA-C Service: ? Author Type: Physician Cribber Type: Progress Notes Filed: 02/25/2021 12:46 PM Note Text: HISTORY AND PHYSICAL Chirag Davies 1970 REFERRING PHYSICIAN: Self CHIEF COMPLAINT: Consult (Colonoscopy) HPI: The patient is a 50 year old male referred for endoscopy. Chirag notes a history of colon polyps. He states he had a previous colonoscopy in 2014 at an outside facility, records not currently available for review. He states he had polyps removed and was told to have another colonoscopy in 5 years. Patient notes a recent episode of a hard bowel movement, following this noted bright red blood with wiping and some discomfort with wiping for several days. Patient denies any weight changes, black tarry stools or abdominal pain. Denies family history of colon issues. The patient notes no upper GI complaints. Patient follows with Dr. Ovidio Deluna in primary care. He denies any known cardiac or pulmonary issues. Denies problems with sedation in the past. Patient takes no routine medications. No past medical history on file. PAST SURGICAL HISTORY Procedure Laterality Date - PAST SURGICAL HISTORY OF right hand pinning/ crush injury - REMOVAL OF TONSILS,11+ Y/O - REPAIR UMBILICAL HERNIA 01/14/16 No current outpatient medications on file. No current facility-administered medications for this visit. ALLERGIES: Patient has no known allergies. PERSONAL HISTORY: Social History Tobacco Use - Smoking status: Current Every Day Smoker Packs/day: 1.00 Years: 20.00 Pack years: 20.00 Types: Cigarettes - Tobacco comment: down to half pack a day Substance Use Topics - Alcohol use: Yes Comment: socially - Drug use: No FAMILY HISTORY: FAMILY HISTORY Problem Relation Age of Onset - Breast Cancer Mother - Diabetes Maternal Grandfather REVIEW OF SYMPTOMS: The review of systems data was entered by the nurse and reviewed by mi Nursing Notes: Annamaria Villanueva 02/25/2021 9:44 AM Signed REVIEW OF SYSTEMS: General: The patient denies fatigue, denies weight loss, denies weight gain, denies feeling hot, and denies feelings of cold. Eyes: The patient denies glaucoma, denies eye injury/surgery, does not wear glasses or contacts. Ear/Nose/Throat: The patient NOTES allergies, denies hayfever, denies ear infections, and denies bloody noses. Cardiovascular: The patient denies chest pain, denies heart disease, denies high blood pressure,denies cardiac stent, denies prior heart attack, denies irregular heart beat, NOTES high cholesterol, denies poor circulation, denies heart failure, other cardiac issues, denies claudication, denies cold feet, denies peripheral arterial stent. Respiratory: The patient denies tuberculosis, denies pneumonia, denies frequent cough, denies pulmonary embolism, denies shortness of breath, and denies coughing up blood. Gastrointestinal: The patient denies difficulty swallowing, denies acid reflux, denies ulcers, denies vomiting, denies jaundice/hepatitis, denies gallbladder problems, denies black or tarry stools, NOTES hemorrhoids, NOTES bleeding from rectum, denies diverticulitis, denies constipation, denies diarrhea, denies loss of stool control, and denies hernias. Kidney/Bladder: The patient denies kidney stones, denies urine infections, and denies bloody urine. Skin: The patient denies a history of skin cancer, denies bleeding/changing moles, and denies a history of skin rash. Neurologic: The patient denies a history of epilepsy/convulsions, denies headaches, denies head/spinal injuries, and denies stroke/TIA. Psychiatric: The patient denies psychiatric medications, denies depression, and denies voices, denies substance abuse. Endocrine: The patient denies thyroid disorders, denies diabetes, and denies hormonal problems. Hematologic: The patient denies a history of bruising, denies bleeding, and denies anemia, denies blood clots. Infections: The patient denies a history of measles and mumps, denies rheumatic fever, and denies sexually transmitted diseases. Musculoskeletal: The patient NOTES back pain/injury, NOTES back problems, denies sciatica, denies knee/foot trouble, denies arthritis, or denies gout. When was patient's last Mammogram screening? N/A Last Colonoscopy: 2014 Annamaria Villanueva I have confirmed and edited as necessary, the PFSH and ROS obtained by others. Meg Lamas PA-C PHYSICAL EXAMINATION: General: The patient is 50 year old male, well nourished, well hydrated in no acute distress. The patient is oriented to time, place, and person. VITALS: Blood pressure 138/74, pulse 86, temperature 36.3 ?C (97.4 ?F), height 182.9 cm (6'), weight 122 kg (269 lb), SpO2 98 %. Body mass index is 36.48 kg/m?. HEENT: Normal cephalic, ataumatic, pupils are equally round, sclera are anicteric, mucous membranes are moist, oropharynx is clear. Neck has no masses, asy (more content not included)... [facility] Summary Purpose Family History No Family History Records Found Advance Directives No Advanced Directives Records Found Additional Source Comments (unrecognized sect ion and content) No Status Records Found INFORMATION SOURCE (unrecogn ized section and content) FOR RECORDS PERTAINING TO PATIENTS WHO ARE OR HAVE BEEN ENROLLED IN A CHEMICAL DEPENDENCY/SUBSTANCEABUSE PROGRAM, SOME INFORMATION MAY BE OMITTED. This clinical summary was aggregated from multiple sources. Caution should be exercised in using it in the provision of clinical care. This summary normalizes information from multiple sources, and as a consequence, information in this document may materially change the coding, format and clinical context of patient data. In addition, data may be omitted in some cases. CLINICAL DECISIONS SHOULD BE BASED ON THE PRIMARY CLINICAL RECORDS. [facility], [facility]. provides no warranty or guarantee of the accuracy or completeness of information in this document.
[2023-05-10 10:02] LABS: Hematocrit 49.3 % (40-54); Mean Corp Hgb Conc 32.5 g/dL (32-36); Mean Corpuscular Hgb 28.3 pg (27.0-32.0); Mean Corpuscular Volume 87.3 fL (80-94); Platelet Count 405 K/mm3 (150-450); RBC Distribution Width CV 13.3 % (11.6-14.6); RBC Distribution Width SD 42.3 fl (35.1-43.9); Red Blood Count 5.65 M/mm3 (4.6-6.2); White Blood Count 12.7 K/mm3 (4.4-11.0)
[2023-05-10 10:38] LABS: Vitamin D,25 Hydroxy 31.8 ng/mL
[2023-05-10 11:04] LABS: AST(SGOT) 20 U/L (15-37); Alanine Aminotransfer ALT/SGPT 31 U/L (16-61); Albumin, Serum 3.6 g/dL (3.2-5.0); Alkaline Phosphatase 71 U/L (45-117); Anion Gap 8 (5-15); BUN 16 mg/dL (7-18); BUN/Creat Ratio 15.4 RATIO (10-20); Bilirubin, Direct 0.14 mg/dL (0.00-0.30); Calcium,Total 9.4 mg/dL (8.5-10.1); Chloride 105 mmol/L (98-107); Cholesterol 231 mg/dL (200); Creatinine, Serum 1.04 mg/dL (0.70-1.30); EST Glomerular Filtration Rate 79 mL/min (>60); Est Glom Filt Rate - Afr Amer 96 mL/min (>60); Globulin 3.9 g/dL (2.2-4.2); Glucose 97 mg/dL (74-106); High Density Lipoprotein 42 mg/dL; PSA,Total - Annual Screen 0.63 ng/mL (0.00-4.00); Potassium 3.8 mmol/L (3.5-5.1); Protein, Total 7.5 g/dL (6.4-8.2); Sodium Level 137 mmol/L (136-145); Triglycerides 196 mg/dL; Very Low Density Lipoprotein 39 mg/dL (5-40)
== END | disposition home or self-care (01) ==
LOC: MTLAB 07:20
PROVIDERS: PCP Family Medicine; Referring Provider Family Medicine; Visit Provider Family Medicine
DX: Z13.220 Encounter for screening for lipoid disorders (principal); Z12.5 Encounter for screening for malignant neoplasm of prostate; Z13.1 Encounter for screening for diabetes mellitus; R53.83 Other fatigue; R79.89 Other specified abnormal findings of blood chemistry
CPT/HCPCS: 36415; 80048; 80061; 80076; 82306; 84153; 84403; 84443; 85027; G0103